=== PATIENT | female | born 1955 | race African-American/Black ===

== ENCOUNTER 2016-10-05 21:09 | Inpatient (IN) | payer BC ==
[~2016-10-05] VITALS: Ht 157.5 cm; Wt 65.8 kg
[~2016-10-05 21:09] MED LIST: BENA40TA41 PO; CITA20TA6 PO; FOLI-49 PO; HYDR-906 PO; IBUP200C PO; METF500T4 PO; MULTI PO; THIA100T10 PO; TRAZ100T15 PO
[2016-10-05 23:43] VITALS: Ht 157.5 cm; Wt 65.8 kg
[2016-10-06] VITALS (13 sets, daily range): BP systolic 105–126; BP diastolic 66–84; PULSE 95–108; RESP 16–19
--- NOTE | 2016-10-06 00:06 | HP ---
Date/Time of Note Date/Time of Note DATE: 10/06/16 TIME: 00:06 Assessment/Plan VTE Prophylaxis VTE Prophylaxis Intervention: SCD's Assessment/Plan Chief Complaint/Hosp Course This is a 61-year-old female [facility] for: #1 abdominal ascites: Secondary to likely alcoholic liver cirrhosis: At the current time we will start the patient on Lasix 40 mg IV twice daily. Will order therapeutic ultrasound-guided paracentesis via IR #2 cirrhosis: Likely secondary to alcoholic liver cirrhosis. Will check ammonia level, patient does does not appear to be encephalopathic at this time. Check hepatitis panel. Patient will likely need to be on started on maintenance medication for her cirrhosis upon discharge. Consider GI consult. #3 hypertension: Continue to monitor at the current time patient is not on any medications if she indeed needs blood pressure medications will likely start with spironolactone as it will also help with #2. #4 anemia: Likely secondary to chronic disease. Will check iron studies. #5 diabetes mellitus: We will check a hemoglobin A1c. She does not take any current oral hypoglycemic agents. #6 DVT and GI prophylaxis: SCDs, Protonix Further treatment strategy will be as per the clinical course Problems: HPI/ROS Admit Date/Time Admit Date/Time Oct 05, 2016 at 23:21 Hx of Present Illness Chief complaint: Abdominal pain and distention This is a 61-year-old female who was transferred from an outside facility for increasing abdominal distention. Patient has a history of cirrhosis and has been getting therapeutic paracentesis. She states that she is homeless and lives with various friends. She currently is not on any medications. She denies any recent confusion. She states that her most recent alcoholic drink was a wine which was yesterday. She does state that she also uses marijuana. Denies any shortness of breath or chest pain. Allergies: Aspirin Medications: None ROS Const: As per HPI Eyes : No pain discharge or redness or change in visual acuity ENT: No pain, sore throat, congestion, congestion, dysphagia or discharge Respiratory: No shortness of breath, cough, sputum, wheezing, or pleuritic pain Cardiovascular: No chest pain, palpitation, PND, or edema GI : As per HPI Genitourinary: No dysuria, hematuria, flank pain , discharge or CVA tenderness Musculoskeletal: No joint pain, back pain, neck pain, restricted range of motion in neck or joints Skin: No rash, bruising or hives Neuro: No headache, dizziness, syncope, seizure, focal weakness Endocrine: No polyuria, polydipsia, temperature intolerance Psych: No hallucination, depression, anxiety or suicidal ideation PMH/Family/Social Past Medical History alcohol abuse, [id number] diabetes, and hypertension, cirrhosis, hep C Past Surgical History Partial hysterectomy Family History Significant Family History: no pertinent family hx Social History Patient states that she used to be a heavy alcohol drinker and her last drink was wine yesterday. Smoking Status: Never smoker Drug Use: marijuana Exam/Review of Systems Exam Exam General: Patient is a pleasant female laying in bed in no acute distress. HEENT: Atraumatic, normocephalic. The pupils are equal, round and reactive. Extraocular motor are intact Neck: Supple with full range of motion. No rigidity or meningismus Chest: Nontender Lungs: Clear to auscultation bilaterally no crackles rales or wheezing Heart: Normal S1-S2, Regular rhythm and rate. No murmur, S3, or S4 Abdomen: Distended, tympanic Extremities: Normal to inspection, no edema no cyanosis Neurologic: Normal mental status, speech normal, cranial nerves II through XII are intact, motor and sensory are intact, no focal weakness Additional Comments Transfer facility lab work did show abnormal coagulation studies, UA with positive leukoesterase and nitrates. Please refer to transfer paperwork for further lab work documentation. CARLA ELIKNS Oct 06, 2016 00:06
[2016-10-06] MEDS ORDERED: NACL 0.9% 3 ML SYG IV SCH (00:30)
[2016-10-06] MEDS ORDERED: morphine 2 MG INJ IV ONE (01:00)
[2016-10-06 01:25] LABS: ADD SCAN DIFF NO
[2016-10-06 01:31] LABS: ABNORMAL IP MESSAGE 1; HEMATOCRIT 29.8 % (37.0-47.0); HEMOGLOBIN 10.4 g/dl (12.0-16.0); MEAN CORPUSCULAR HEMOGLOBIN 34.1 pg (29.0-33.0); MEAN CORPUSCULAR HGB CONC 34.9 g/dl (32.0-37.0); MEAN CORPUSCULAR VOLUME 97.7 fl (82.0-101.0); MEAN PLATELET VOLUME 9.9 fl (7.4-10.4); PLATELET COUNT 31 10^3/UL (140-415); RED BLOOD COUNT 3.05 10^6/ul (4.20-5.40); RED CELL DISTRIBUTION WIDTH 16.6 % (11.5-14.5); WHITE BLOOD COUNT 3.4 10^3/ul (4.8-10.8)
[2016-10-06 01:52] LABS: ALBUMIN 2.6 g/dl (3.3-4.9); ALBUMIN/GLOBULIN RATIO 0.48; BILIRUBIN,DIRECT 0.6 mg/dl (0.00-0.20); BILIRUBIN,INDIRECT 1.1 mg/dl (0-1.1); BILIRUBIN,TOTAL 1.7 mg/dl (0.2-1.3); CALCIUM 8.3 mg/dl (8.4-10.2); CREATININE 0.73 mg/dl (0.44-1.00); POTASSIUM 3.1 mmol/L (3.5-5.1)
[2016-10-06 02:00] LABS: LYMPHOCYTES # 1.2 10^3/ul (0.8-2.9); MONOCYTE # 0.3 10^3/ul (0.3-0.9); NEUTROPHIL # 1.9 10^3/ul (1.6-7.5)
[2016-10-06 02:01] LABS: PLATELET ESTIMATE PLT APPEAR
[2016-10-06] MEDS ORDERED: POTASSIUM CHLORIDE (SR) 20 MEQ TAB PO STA ×2 (02:50→10:12)
[2016-10-06] MEDS: PANTOPRAZOLE 40 MG INJ IV SCH (05:21)
[2016-10-06] MEDS: FUROSEMIDE 40 MG INJ IV SCH ×2 (05:21→18:08)
[2016-10-06 08:15] LABS: CALCIUM 8.2 mg/dl (8.4-10.2); CREATININE 0.73 mg/dl (0.44-1.00); IRON 57 ug/dl (35-150); PROTIME 22.9 Sec (12.2-14.2); PT RATIO 1.8
[2016-10-06 08:16] LABS: PARTIAL THROMBOPLASTIN TIME 41.6 Sec (25.0-35.0)
[2016-10-06 08:23] LABS: POTASSIUM 2.7 mmol/L (3.5-5.1)
[2016-10-06 08:24] LABS: TOTAL IRON BINDING CAPACITY 176 ug/dl (241-421)
[2016-10-06] MEDS: POTASSIUM CHLORIDE (SR) 20 MEQ TAB PO SCH (09:36)
[2016-10-06] MEDS: MULTIVITAMINS 10 ML, THIAMINE 100 MG, FOLIC ACID 1 MG in SOD CHLORIDE 0.9% 1,000 ML IVPB SCH (09:36)
[2016-10-06] MEDS: morphine 2 MG INJ IV PRN (09:46)
[2016-10-06] MEDS: ONDANSETRON 4 MG INJ IV PRN (09:46)
[2016-10-06] MEDS ORDERED: POTASSIUM CHLORIDE 250 ML IVPB ONE (11:30)
[2016-10-06 13:49] LABS: ADD UMIC YES; UR ASCORBIC ACID NEGATIVE (NEGATIVE); UR BACTERIA FEW /HPF (NONE SEEN); UR BILIRUBIN (Dip) 1+ mg/dL (NEGATIVE); UR BLOOD (Dip) 3+ mg/dL (NEGATIVE); UR CLARITY TURBID (CLEAR); UR COLOR RED (YELLOW); UR GLUCOSE (Dip) NEGATIVE (NEGATIVE); UR KETONES (Dip) NEGATIVE (NEGATIVE); UR LEUKOCYTE ESTERASE (Dip) 2+ Leu/ul (NEGATIVE); UR MUCUS MANY /HPF (NONE SEEN); UR NITRITE (Dip) NEGATIVE (NEGATIVE); UR RBC 127 /HPF (0-5); UR SPECIFIC GRAVITY (Dip) 1.025 (1.003-1.030); UR SQUAMOUS EPITHELIAL CELL FEW /HPF (FEW); UR TOTAL PROTEIN (Dip) 2+ mg/dl (NEGATIVE); UR UROBILINOGEN (Dip) 2+ mg/dL (NEGATIVE)
[2016-10-06 14:20] LABS: BARBITURATES Negative (NEGATIVE); BENZODIAZEPINES Negative (NEGATIVE); CANNABINOIDS Positive (NEGATIVE); COCAINE Negative (NEGATIVE); OPIATES Positive (NEGATIVE)
[2016-10-06] MEDS ORDERED: SOD CHLORIDE 0.9% 250 ML IV* ONE (15:51)
[2016-10-06] MEDS ORDERED: FUROSEMIDE 40 MG INJ IV SCH (16:00)
[2016-10-06] MEDS: CEFTRIAXONE 1 GM/50 ML (PMX) 50 ML IVPB SCH (16:43)
[2016-10-06 16:53] LABS: BARBITURATES Negative (NEGATIVE); BENZODIAZEPINES Negative (NEGATIVE); CANNABINOIDS Positive (NEGATIVE); COCAINE Negative (NEGATIVE); OPIATES Positive (NEGATIVE)
[2016-10-06] MEDS ORDERED: PHYTONADIONE 10 MG in DEXTROSE 5% 50 ML IVPB ONE (18:00)
[2016-10-07] VITALS (10 sets, daily range): BP systolic 101–122; BP diastolic 58–79; PULSE 104–128; RESP 16–20
[2016-10-07] MEDS: POTASSIUM CHLORIDE (SR) 20 MEQ TAB PO SCH (00:27)
[2016-10-07] MEDS: LORAZEPAM 2 MG INJ IV PRN (00:46)
[2016-10-07] MEDS: PANTOPRAZOLE 40 MG INJ IV SCH (05:42)
[2016-10-07] MEDS: FUROSEMIDE 40 MG INJ IV SCH ×3 (05:43→17:44)
[2016-10-07 07:10] LABS: ADD SCAN DIFF NO
[2016-10-07 07:15] LABS: ABNORMAL IP MESSAGE 1; BASOPHILS % 0.3 % (0.0-2.0); EOSINOPHILS % 0.6 % (0.0-7.0); HEMATOCRIT 28.7 % (37.0-47.0); HEMOGLOBIN 9.7 g/dl (12.0-16.0); LYMPHOCYTES # 1.4 10^3/ul (0.8-2.9); LYMPHOCYTES % 40.1 % (15.0-51.0); MEAN CORPUSCULAR HEMOGLOBIN 33.1 pg (29.0-33.0); MEAN CORPUSCULAR HGB CONC 33.8 g/dl (32.0-37.0); MEAN PLATELET VOLUME 11.5 fl (7.4-10.4); MONOCYTE # 0.6 10^3/ul (0.3-0.9); MONOCYTES % 18.7 % (0.0-11.0); NEUTROPHIL # 1.4 10^3/ul (1.6-7.5); PLATELET COUNT 31 10^3/UL (140-415); RED BLOOD COUNT 2.93 10^6/ul (4.20-5.40); RED CELL DISTRIBUTION WIDTH 16.8 % (11.5-14.5); WHITE BLOOD COUNT 3.4 10^3/ul (4.8-10.8)
[2016-10-07 07:32] LABS: INR 2.16; MAGNESIUM 1.5 mg/dl (1.7-2.5); PHOSPHORUS 2.5 mg/dl (2.5-4.9); PROTIME 24.3 Sec (12.2-14.2); PT RATIO 1.9
[2016-10-07 07:33] LABS: CHOL/HDL RATIO 5.9 RATIO; PARTIAL THROMBOPLASTIN TIME 42.8 Sec (25.0-35.0)
[2016-10-07 07:34] LABS: ALBUMIN 2.5 g/dl (3.3-4.9); ALBUMIN/GLOBULIN RATIO 0.51; BILIRUBIN,DIRECT 0.8 mg/dl (0.00-0.20); BILIRUBIN,INDIRECT 1.6 mg/dl (0-1.1); BILIRUBIN,TOTAL 2.4 mg/dl (0.2-1.3); CALCIUM 7.8 mg/dl (8.4-10.2); CREATININE 1.01 mg/dl (0.44-1.00); POTASSIUM 4.3 mmol/L (3.5-5.1); TOTAL PROTEIN 7.4 g/dl (6.1-8.1)
[2016-10-07 08:03] LABS: THYROID STIMULATING HORMONE 2.32 MIU/L (0.465-4.680)
[2016-10-07] MEDS: MULTIVITAMINS 10 ML, THIAMINE 100 MG, FOLIC ACID 1 MG in SOD CHLORIDE 0.9% 1,000 ML IVPB SCH (08:51)
[2016-10-07] MEDS ORDERED: PHYTONADIONE 10 MG in DEXTROSE 5% 50 ML IVPB ONE (12:30)
[2016-10-07] MEDS: morphine 2 MG INJ IV PRN ×2 (12:36→22:39)
[2016-10-07] MEDS ORDERED: IBUPROFEN 400 MG TAB PO ONE (15:30)
[2016-10-07 15:31] LABS: ADD SCAN DIFF NO
[2016-10-07 15:53] LABS: ABNORMAL IP MESSAGE 1; HEMATOCRIT 29.6 % (37.0-47.0); HEMOGLOBIN 10.2 g/dl (12.0-16.0); MEAN CORPUSCULAR HEMOGLOBIN 34.1 pg (29.0-33.0); MEAN CORPUSCULAR HGB CONC 34.5 g/dl (32.0-37.0); MEAN PLATELET VOLUME 11.1 fl (7.4-10.4); RED BLOOD COUNT 2.99 10^6/ul (4.20-5.40); RED CELL DISTRIBUTION WIDTH 16.7 % (11.5-14.5); WHITE BLOOD COUNT 3.7 10^3/ul (4.8-10.8)
[2016-10-07 15:56] LABS: PLATELET COUNT 54 10^3/UL (140-415)
[2016-10-07] MEDS ORDERED: MAGNESIUM SULFATE 2 GM/50 ML 50 ML IVPB ONE (16:00)
[2016-10-07] MEDS ORDERED: FUROSEMIDE 20 MG INJ IV ONE (16:30)
--- NOTE | 2016-10-07 16:35 | PN ---
Date/Time of Note Date/Time of Note DATE: 10/07/16 TIME: 16:31 Assessment/Plan VTE Prophylaxis VTE Prophylaxis Intervention: contraindicated Lines/Catheters [facility]from [facility] Peripheral IV Urinary Cath still in place: Yes Reason Cath still needed: other (indicate) Assessment/Plan Chief Complaint/Hosp Course 1. Alcoholic liver cirrhosis. Continue Lasix. 2. Ascites secondary to alcoholic liver cirrhosis. Continue diuresis. The patient is scheduled for a paracentesis. 3. Coagulopathy secondary to underlying alcoholic liver disease. Status post 2 units of platelet. Status post vitamin K. Repeat PT/INR as well as platelet count. 4. Pancytopenia. Most probably secondary to underlying liver cirrhosis. Transfuse blood products. 5. Transaminitis with hyperbilirubinemia. Avoid hepatotoxic medications. Trend LFTs. 6. Fluids, electrolytes, and nutrition. Low-sodium diet. 7. DVT prophylaxis. Contraindicated. 8. Gastrointestinal prophylaxis. Proton pump inhibitors. 9. Plan. Continue diuresis. Await paracentesis. Replete magnesium. Case discussed with Dr. Alvarado. Problems: Subjective 24 Hr Interval Summary Free Text/Dictation Complains of dyspnea. Exam/Review of Systems Vital Signs Vitals Vital Signs Date Time Temp Pulse Resp B/P Pulse Ox O2 Delivery O2 Flow Rate FiO2 10/07/16 16:26 128 10/07/16 15:22 99.0 18 122/66 97 Intake and Output 10/06/16 10/06/16 10/07/16 15:00 23:00 07:00 Intake Total 1700 ml 300 ml Output Total 900 ml 1100 ml Balance 800 ml -800 ml Exam General: Thin, frail looking 61 year-old female lying in bed in mild respiratory distress. HEENT: Normocephalic, atraumatic. Eyes: Anicteric sclerae, conjunctivae clear. ENT: Nasal septum midline, oral mucosa moist. Neck supple, no JVD noticed. Respiratory: Bilaterally diminished breath sounds. Use of accessory muscles of respiration. Bilateral rales. Cardiovascular: S1, S2 heard. No murmurs or gallops. Tachycardia. Abdomen: Distended. Ascites. Nontender. Genitourinary: Deferred. Extremities: No cyanosis, no clubbing, no edema. Peripheral pulses palpable. Neurologic: Cranial nerves II through XII grossly intact. The patient is awake, alert, and oriented. Skin: Normal skin turgor. No skin rashes. Results Result Diagram: 10/07/16 1519 10/07/16 0640 Results 24 hrs Laboratory Tests Test 10/07/16 06:40 10/07/16 15:19 White Blood Count 3.4 L 3.7 L Red Blood Count 2.93 L 2.99 L Hemoglobin 9.7 L 10.2 L Hematocrit 28.7 L 29.6 L Mean Corpuscular Volume 98.0 99.0 Mean Corpuscular Hemoglobin 33.1 H 34.1 H Mean Corpuscular Hemoglobin Concent 33.8 34.5 Red Cell Distribution Width 16.8 H 16.7 H Platelet Count 31 L 54 #L Mean Platelet Volume 11.5 H 11.1 H Neutrophils % 40.0 Lymphocytes % 40.1 Monocytes % 18.7 H Eosinophils % 0.6 Basophils % 0.3 Nucleated Red Blood Cells % 0.0 Neutrophils # 1.4 L Lymphocytes # 1.4 Monocytes # 0.6 Eosinophils # 0.0 Basophils # 0.0 Nucleated Red Blood Cells # 0.0 Prothrombin Time 24.3 H Prothrombin Time Ratio 1.9 INR International Normalized Ratio 2.16 Activated Partial Thromboplast Time 42.8 H Sodium Level 134 L Potassium Level 4.3 Chloride Level 107 Carbon Dioxide Level 25 Anion Gap 6 L Blood Urea Nitrogen 8 Creatinine 1.01 H Glucose Level 83 # Calcium Level 7.8 L Phosphorus Level 2.5 Magnesium Level 1.5 L Total Bilirubin 2.4 H Direct Bilirubin 0.80 #H Indirect Bilirubin 1.6 H Aspartate Amino Transf (AST/SGOT) 160 H Alanine Aminotransferase (ALT/SGPT) 57 Alkaline Phosphatase 120 Total Protein 7.4 Albumin 2.5 L Globulin 4.90 H Albumin/Globulin Ratio 0.51 Triglycerides Level 55 Cholesterol Level 65 L LDL Cholesterol, Calculated 43 HDL Cholesterol 11 L Cholesterol/HDL Ratio 5.9 Thyroid Stimulating Hormone (TSH) 2.320 Free Thyroxine 2.91 H Medications Medications Current Medications Ondansetron HCl (Zofran Inj) 4 mg Q6H PRN IV NAUSEA AND/OR VOMITING Last administered on 10/06/16 09:46; Admin Dose 4 MG; Start 10/06/16 at 00:30 Pantoprazole 40 mg 40 mg DAILY@06 IV Last administered on 10/07/16 05:42; Admin Dose 40 MG; Start 10/06/16 at 06:00 Ceftriaxone Sodium (Rocephin) 50 ml @ 100 mls/hr Q24H IVPB Last administered on 10/06/16 16:43; Admin Dose 100 MLS/HR; Start 10/06/16 at 17:00 Lorazepam (Ativan) 1 mg Q6H PRN IV AGITATION/ANXIETY Last administered on 00:46; Admin Dose 1 MG; Start 10/06/16 at 03:00 Morphine Sulfate 2 mg 2 mg Q4H PRN IV PAIN LEVEL 6-10 Last administered on 10/07 12:36; Admin Dose 2 MG; Start 10/06/16 at 05:30 Multivitamins 10 ml/Thiamine HCl 100 mg/Folic Acid 1 mg/Sodium Chloride 1,011.2 ml @ 125 mls/ hr DAILY@09 IVPB Last administered on 10/07/16 08:51; Admin Dose 125 MLS/HR; Start 10/06/16 at 09:00 Magnesium Sulfate (Magnesium Sulfate 2 Gm/50 ml) 50 ml @ 25 mls/hr ONCE ONCE IVPB ; Start 10/07/16 at 16:00; Stop 10/07/16 at 17:59 LATANYA SHEEHAN NP Oct 07, 2016 16:34
[2016-10-07] MEDS: CEFTRIAXONE 1 GM/50 ML (PMX) 50 ML IVPB SCH (16:43)
[2016-10-07 16:45] LABS: LYMPHOCYTES # 0.8 10^3/ul (0.8-2.9); MONOCYTE # 0.3 10^3/ul (0.3-0.9); NEUTROPHIL # 2.5 10^3/ul (1.6-7.5)
[2016-10-07 16:47] LABS: PLATELET ESTIMATE PLT APPEAR DECREASED
[2016-10-07 17:00] LABS: INR 1.81; PROTIME 21.1 Sec (12.2-14.2); PT RATIO 1.6
[2016-10-07 17:01] LABS: PARTIAL THROMBOPLASTIN TIME 40.5 Sec (25.0-35.0)
[2016-10-08] VITALS (12 sets, daily range): BP systolic 108–131; BP diastolic 59–88; PULSE 93–119; RESP 16–20
[2016-10-08] MEDS: FUROSEMIDE 40 MG INJ IV SCH ×2 (05:48→18:18)
[2016-10-08] MEDS: PANTOPRAZOLE 40 MG INJ IV SCH (05:49)
[2016-10-08 07:34] LABS: ADD SCAN DIFF NO
[2016-10-08 07:43] LABS: ABNORMAL IP MESSAGE 1; HEMATOCRIT 27.4 % (37.0-47.0); HEMOGLOBIN 9.1 g/dl (12.0-16.0); MEAN CORPUSCULAR HEMOGLOBIN 33.7 pg (29.0-33.0); MEAN CORPUSCULAR HGB CONC 33.2 g/dl (32.0-37.0); MEAN CORPUSCULAR VOLUME 101.5 fl (82.0-101.0); RED CELL DISTRIBUTION WIDTH 16.9 % (11.5-14.5); WHITE BLOOD COUNT 4.6 10^3/ul (4.8-10.8)
[2016-10-08 07:48] LABS: PLATELET COUNT 28 10^3/UL (140-415)
[2016-10-08 07:56] LABS: INR 1.88; PROTIME 21.8 Sec (12.2-14.2); PT RATIO 1.7
[2016-10-08 07:57] LABS: PARTIAL THROMBOPLASTIN TIME 40.7 Sec (25.0-35.0)
[2016-10-08 07:59] LABS: ALBUMIN 2.6 g/dl (3.3-4.9); ALBUMIN/GLOBULIN RATIO 0.52; BILIRUBIN,DIRECT 0.9 mg/dl (0.00-0.20); BILIRUBIN,INDIRECT 1.4 mg/dl (0-1.1); BILIRUBIN,TOTAL 2.3 mg/dl (0.2-1.3); CALCIUM 8.1 mg/dl (8.4-10.2); CREATININE 1.26 mg/dl (0.44-1.00); POTASSIUM 3.3 mmol/L (3.5-5.1); TOTAL PROTEIN 7.6 g/dl (6.1-8.1)
[2016-10-08 08:03] LABS: MAGNESIUM 1.8 mg/dl (1.7-2.5)
[2016-10-08] MEDS: MULTIVITAMINS 10 ML, THIAMINE 100 MG, FOLIC ACID 1 MG in SOD CHLORIDE 0.9% 1,000 ML IVPB SCH (09:01)
[2016-10-08 10:11] LABS: LYMPHOCYTES # 0.9 10^3/ul (0.8-2.9); MONOCYTE # 0.6 10^3/ul (0.3-0.9); MYELOCYTES # 0.1; NEUTROPHIL # 2.9 10^3/ul (1.6-7.5); PLATELET ESTIMATE PLT APPEAR DECREASED
[2016-10-08] MEDS ORDERED: SOD CHLORIDE 0.9% 250 ML IV* ONE (10:57)
[2016-10-08] MEDS ORDERED: FUROSEMIDE 40 MG INJ IV SCH (11:00)
[2016-10-08] MEDS ORDERED: POTASSIUM CHLORIDE (SR) 20 MEQ TAB PO STA (14:20)
--- NOTE | 2016-10-08 14:22 | PN ---
Date/Time of Note Date/Time of Note DATE: 10/08/16 TIME: 14:15 Assessment/Plan VTE Prophylaxis VTE Prophylaxis Intervention: contraindicated Lines/Catheters [facility]from [facility]): Peripheral IV Urinary Cath still in place: Yes Reason Cath still needed: other (indicate) Assessment/Plan Chief Complaint/Hosp Course 1. Alcoholic liver cirrhosis. Continue Lasix. Will start the patient on lactulose since the patient has hyperammonemia. 2. Ascites secondary to alcoholic liver cirrhosis. Continue diuresis. The patient is scheduled for a paracentesis. 3. Coagulopathy secondary to underlying alcoholic liver disease. Status post multiple platelet transfusions. 4. Pancytopenia. Most probably secondary to underlying liver cirrhosis. Transfuse blood products. 5. Transaminitis with hyperbilirubinemia. Avoid hepatotoxic medications. Trend LFTs. 6. Fluids, electrolytes, and nutrition. Low-sodium diet. 7. DVT prophylaxis. Contraindicated. 8. Gastrointestinal prophylaxis. Proton pump inhibitors. 9. Plan. Continue diuresis. Transfuse 2 more units of platelets today. Await paracentesis. Replete potassium. Start lactulose. Case discussed with Dr. Alvarado. Problems: Subjective 24 Hr Interval Summary Free Text/Dictation Denies any dyspnea. Exam/Review of Systems Vital Signs Vitals Vital Signs Date Time Temp Pulse Resp B/P Pulse Ox O2 Delivery O2 Flow Rate FiO2 10/08/16 12:21 108 10/08/16 11:19 98.4 18 121/66 96 Intake and Output 10/07/16 10/07/16 10/08/16 15:00 23:00 07:00 Intake Total 660 ml 1461.2 ml Output Total 1300 ml 700 ml Balance -640 ml 761.2 ml Exam General: Thin, frail looking 61 year-old female lying in bed in no apparent distress. HEENT: Normocephalic, atraumatic. Eyes: Anicteric sclerae, conjunctivae clear. ENT: Nasal septum midline, oral mucosa moist. Neck supple, no JVD noticed. Respiratory: Bilaterally diminished breath sounds. Use of accessory muscles of respiration. Cardiovascular: S1, S2 heard. No murmurs or gallops. Tachycardia. Abdomen: Distended. Ascites. Nontender. Genitourinary: Deferred. Extremities: No cyanosis, no clubbing, no edema. Peripheral pulses palpable. Neurologic: Cranial nerves II through XII grossly intact. The patient is awake, alert, and oriented. Skin: Normal skin turgor. No skin rashes. Results Result Diagram: 10/08/16 0656 10/08/16 0656 Results 24 hrs Laboratory Tests Test 10/07/16 15:19 10/08/16 05:33 10/08/16 06:56 10/08/16 06:59 White Blood Count 3.7 L 4.6 #L Red Blood Count 2.99 L 2.70 L Hemoglobin 10.2 L 9.1 L Hematocrit 29.6 L 27.4 L Mean Corpuscular Volume 99.0 101.5 H Mean Corpuscular Hemoglobin 34.1 H 33.7 H Mean Corpuscular Hemoglobin Concent 34.5 33.2 Red Cell Distribution Width 16.7 H 16.9 H Platelet Count 54 #L 28 #*L Mean Platelet Volume 11.1 H 11.0 H Neutrophils % 68.0 64.0 Band Neutrophils % 1.0 Lymphocytes % 22.0 19.0 Monocytes % 8.0 13.0 H Eosinophils % 1.0 Neutrophils # 2.5 2.9 Lymphocytes # 0.8 0.9 Monocytes # 0.3 0.6 Eosinophils # 0.0 Platelet Estimate PLT APPEAR DECREASED PLT APPEAR DECREASED Prothrombin Time 21.1 H 21.8 H Prothrombin Time Ratio 1.6 1.7 INR International Normalized Ratio 1.81 1.88 Activated Partial Thromboplast Time 40.5 H 40.7 H Lab Scanned Report BLOOD TRANSFUSION Metamyelocytes % 2.0 H Myelocytes % 2.0 H Metamyelocytes # 0.1 Myelocytes # 0.1 Sodium Level 135 Potassium Level 3.3 L Chloride Level 106 Carbon Dioxide Level 28 Anion Gap 4 L Blood Urea Nitrogen 10 Creatinine 1.26 H Glucose Level 116 Calcium Level 8.1 L Total Bilirubin 2.3 H Direct Bilirubin 0.90 H Indirect Bilirubin 1.4 H Aspartate Amino Transf (AST/SGOT) 125 H Alanine Aminotransferase (ALT/SGPT) 52 Alkaline Phosphatase 147 H Ammonia 60 #H Total Protein 7.6 Albumin 2.6 L Globulin 5.00 H Albumin/Globulin Ratio 0.52 Phosphorus Level 3.0 Magnesium Level 1.8 Medications Medications Current Medications Ondansetron HCl (Zofran Inj) 4 mg Q6H PRN IV NAUSEA AND/OR VOMITING Last administered on 10/06/16t 09:46; Admin Dose 4 MG; Start 10/06/16 at 00:30 Pantoprazole 40 mg 40 mg DAILY@06 IV Last administered on 10/08/16 05:49; Admin Dose 40 MG; Start 10/06/16 at 06:00 Ceftriaxone Sodium (Rocephin) 50 ml @ 100 mls/hr Q24H IVPB Last administered on 10/07/16 16:43; Admin Dose 100 MLS/HR; Start 10/06/16 at 17:00 Lorazepam (Ativan) 1 mg Q6H PRN IV AGITATION/ANXIETY Last administered on 00:46; Admin Dose 1 MG; Start 10/06/16 at 03:00 Morphine Sulfate 2 mg 2 mg Q4H PRN IV PAIN LEVEL 6-10 Last administered on 10/07 22:39; Admin Dose 2 MG; Start 10/06/16 at 05:30 Multivitamins/ Thiamine HCl/ Folic Acid/Sodium Chloride (Mvi Adult/ Vitamin B1/ Folic Acid/NS) 1,011.2 ml @ 125 mls/ hr DAILY@09 IVPB Last administered on 09:01; Admin Dose 125 MLS/HR; Start 10/06/16 at 09:00 Furosemide (Lasix) 20 mg ONCE IV ; Start 10/08/16 at 11:00; Stop 10/09/16 at 10: 59 LATANYA SHEEHAN BRASS ROLLER Oct 08, 2016 14:22
[2016-10-08] MEDS: LACTULOSE 30ML CUP PO SCH ×2 (14:55→21:00)
[2016-10-08] MEDS: morphine 2 MG INJ IV PRN ×2 (17:02→23:58)
[2016-10-08] MEDS: CEFTRIAXONE 1 GM/50 ML (PMX) 50 ML IVPB SCH (17:35)
[2016-10-09] VITALS (12 sets, daily range): BP systolic 112–131; BP diastolic 79–92; PULSE 96–116; RESP 18–20
[2016-10-09] MEDS: PANTOPRAZOLE 40 MG INJ IV SCH (05:14)
[2016-10-09] MEDS: FUROSEMIDE 40 MG INJ IV SCH ×2 (05:15→17:06)
[2016-10-09] MEDS: LACTULOSE 30ML CUP PO SCH ×3 (05:16→21:19)
[2016-10-09 07:57] LABS: ADD SCAN DIFF NO
[2016-10-09 07:58] LABS: ABNORMAL IP MESSAGE 1; BASOPHILS % 0.5 % (0.0-2.0); EOSINOPHILS % 0.8 % (0.0-7.0); HEMATOCRIT 30.6 % (37.0-47.0); HEMOGLOBIN 9.8 g/dl (12.0-16.0); LYMPHOCYTES # 1.4 10^3/ul (0.8-2.9); MEAN CORPUSCULAR HEMOGLOBIN 32.9 pg (29.0-33.0); MEAN CORPUSCULAR VOLUME 102.7 fl (82.0-101.0); MEAN PLATELET VOLUME 11.7 fl (7.4-10.4); MONOCYTE # 0.9 10^3/ul (0.3-0.9); MONOCYTES % 21.8 % (0.0-11.0); NEUTROPHIL # 1.7 10^3/ul (1.6-7.5); NEUTROPHILS % 41.4 % (39.0-77.0); RED BLOOD COUNT 2.98 10^6/ul (4.20-5.40)
[2016-10-09 08:07] LABS: PLATELET COUNT 33 10^3/UL (140-415)
[2016-10-09 08:37] LABS: INR 1.77; PROTIME 20.8 Sec (12.2-14.2); PT RATIO 1.6
[2016-10-09 08:38] LABS: PARTIAL THROMBOPLASTIN TIME 40.8 Sec (25.0-35.0)
[2016-10-09 08:44] LABS: MAGNESIUM 1.5 mg/dl (1.7-2.5); PHOSPHORUS 3.3 mg/dl (2.5-4.9)
[2016-10-09 08:49] LABS: ALBUMIN/GLOBULIN RATIO 0.58; BILIRUBIN,INDIRECT 1.9 mg/dl (0-1.1); BILIRUBIN,TOTAL 3.9 mg/dl (0.2-1.3); CALCIUM 8.4 mg/dl (8.4-10.2); CREATININE 1.06 mg/dl (0.44-1.00); TOTAL PROTEIN 8.1 g/dl (6.1-8.1)
[2016-10-09] MEDS: MULTIVITAMINS 10 ML, THIAMINE 100 MG, FOLIC ACID 1 MG in SOD CHLORIDE 0.9% 1,000 ML IVPB SCH (08:55)
[2016-10-09] MEDS: morphine 2 MG INJ IV PRN (12:54)
--- NOTE | 2016-10-09 13:33 | PN ---
Date/Time of Note Date/Time of Note DATE: 10/09/16 TIME: 13:28 Assessment/Plan VTE Prophylaxis VTE Prophylaxis Intervention: SCD's Lines/Catheters IV [facility] Type (from [facility] Saline Lock [place] line still needed: Yes Urinary Cath still in place: Yes Reason Cath still needed: other (indicate) Assessment/Plan Assessment/Plan 1. Ascites secondary to alcoholic liver cirrhosis. Continue diuresis. awaiting for paracentesis 2. Alcoholic liver cirrhosis. advise no ETOH 3. Pancytopenia. secondary to underlying liver cirrhosis and ETOH, follow up with CBC. 5. Transaminitis with hyperbilirubinemia. Avoid hepatotoxic medications. Trend LFTs. Subjective 24 Hr Interval Summary Free Text/Dictation abdominal distension Exam/Review of Systems Vital Signs Vitals Vital Signs Date Time Temp Pulse Resp B/P Pulse Ox O2 Delivery O2 Flow Rate FiO2 10/09/16 12:11 116 10/09/16 11:48 98.0 18 130/88 97 10/08/16 15:30 Room Air Intake and Output 10/08/16 10/08/16 10/09/16 15:00 23:00 07:00 Intake Total 580 ml 550 ml Output Total 870 ml 1700 ml Balance -290 ml -1150 ml Exam Constitutional: alert, oriented Head: atraumatic, normocephalic Eyes: EOMI, PERRL, nl conjunctiva, nl lids, nl sclera ENMT: nl external ears & nose, nl lips & teeth, nl nasal mucosa & septum Neck: supple Respiratory: clear to auscultation, normal air movement, No congested cough, No crackles/rales, No diminished breath sounds, No intercostal retraction, No labored breathing, No other, No respirations, No tactile fremitus, No wheezing Cardiovascular: nl pulses, regular rate and rhythm, No S3, No S4, No bruits, No diastolic murmur, No edema, No gallop, No irregular rhythm, No jugular venous distention (JVD), No murmurs/extra sounds, No other, No rub, No systolic murmur Gastrointestinal: distended, tender (diffuse) Extremities: normal pulses, No calf tenderness, No clubbing, No cyanosis, No edema, No other, No palpable cord, No pitting pedal edema, No tenderness Neurological: [employer] II-XII intact, nl mental status, nl speech, nl strength Results Result Diagram: 10/09/16 0714 10/09/16 0715 Results 24 hrs Laboratory Tests Test 10/09/16 06:18 10/09/16 07:14 10/09/16 07:15 Lab Scanned Report BLOOD TRANSFUSION White Blood Count 4.0 L Red Blood Count 2.98 L Hemoglobin 9.8 L Hematocrit 30.6 L Mean Corpuscular Volume 102.7 H Mean Corpuscular Hemoglobin 32.9 Mean Corpuscular Hemoglobin Concent 32.0 Red Cell Distribution Width 17.0 H Platelet Count 33 L Mean Platelet Volume 11.7 H Neutrophils % 41.4 Lymphocytes % 35.0 Monocytes % 21.8 H Eosinophils % 0.8 Basophils % 0.5 Nucleated Red Blood Cells % 0.0 Neutrophils # 1.7 Lymphocytes # 1.4 Monocytes # 0.9 Eosinophils # 0.0 Basophils # 0.0 Nucleated Red Blood Cells # 0.0 Prothrombin Time 20.8 H Prothrombin Time Ratio 1.6 INR International Normalized Ratio 1.77 Activated Partial Thromboplast Time 40.8 H Phosphorus Level 3.3 Magnesium Level 1.5 L Sodium Level 139 Potassium Level 3.0 L Chloride Level 106 Carbon Dioxide Level 28 Anion Gap 8 Blood Urea Nitrogen 11 Creatinine 1.06 H Glucose Level 98 Calcium Level 8.4 Total Bilirubin 3.9 H Direct Bilirubin 2.00 #H Indirect Bilirubin 1.9 H Aspartate Amino Transf (AST/SGOT) 125 H Alanine Aminotransferase (ALT/SGPT) 47 Alkaline Phosphatase 144 H Total Protein 8.1 Albumin 3.0 L Globulin 5.10 H Albumin/Globulin Ratio 0.58 Medications Medications Current Medications Ondansetron HCl (Zofran Inj) 4 mg Q6H PRN IV NAUSEA AND/OR VOMITING Last administered on 10/06/16 09:46; Admin Dose 4 MG; Start 10/06/16 at 00:30 Pantoprazole (Protonix Iv) 40 mg DAILY@06 IV Last administered on 10/09/16 05: 14; Admin Dose 40 MG; Start 10/06/16 at 06:00 Lorazepam (Ativan) 1 mg Q6H PRN IV AGITATION/ANXIETY Last administered on 00:46; Admin Dose 1 MG; Start 10/06/16 at 03:00 Morphine Sulfate 2 mg 2 mg Q4H PRN IV PAIN LEVEL 6-10 Last administered on 10/09 12:54; Admin Dose 2 MG; Start 10/06/16 at 05:30 Multivitamins/ Thiamine HCl/ Folic Acid/Sodium Chloride (Mvi Adult/ Vitamin B1/ Folic Acid/NS) 1,011.2 ml @ 125 mls/ hr DAILY@09 IVPB Last administered on 08:55; Admin Dose 125 MLS/HR; Start 10/06/16 at 09:00 Lactulose 20 gm 20 gm Q8 PO Last administered on 10/09/16 05:16; Admin Dose 20 GM; Start 10/08/16 at 14:30 Ceftriaxone Sodium (Rocephin) 50 ml @ 100 mls/hr Q24H IVPB Last administered on 10/08/16 17:35; Admin Dose 100 MLS/HR; Start 10/08/16 at 17:02 KENNEY NASH MD Oct 09, 2016 13:32
[2016-10-09] MEDS ORDERED: POTASSIUM CHLORIDE (SR) 20 MEQ TAB PO STA (16:47)
[2016-10-09] MEDS: CEFTRIAXONE 1 GM/50 ML (PMX) 50 ML IVPB SCH (17:08)
[2016-10-09] MEDS ORDERED: MAGNESIUM SULFATE 4 GM/100 ML 100 ML IVPB ONE (18:00)
[2016-10-10] VITALS (12 sets, daily range): BP systolic 105–130; BP diastolic 70–86; PULSE 93–103; RESP 16–18
[2016-10-10] MEDS: FUROSEMIDE 40 MG INJ IV SCH ×2 (05:10→17:56)
[2016-10-10] MEDS: PANTOPRAZOLE 40 MG INJ IV SCH (05:10)
[2016-10-10] MEDS: LACTULOSE 30ML CUP PO SCH ×3 (05:10→21:30)
[2016-10-10 08:17] LABS: ADD SCAN DIFF NO
[2016-10-10 08:25] LABS: ABNORMAL IP MESSAGE 1; BASOPHILS % 0.5 % (0.0-2.0); EOSINOPHILS % 0.7 % (0.0-7.0); HEMATOCRIT 26.2 % (37.0-47.0); HEMOGLOBIN 8.8 g/dl (12.0-16.0); LYMPHOCYTES # 1.6 10^3/ul (0.8-2.9); LYMPHOCYTES % 36.3 % (15.0-51.0); MEAN CORPUSCULAR HGB CONC 33.6 g/dl (32.0-37.0); MEAN CORPUSCULAR VOLUME 101.2 fl (82.0-101.0); MEAN PLATELET VOLUME 11.3 fl (7.4-10.4); MONOCYTE # 0.9 10^3/ul (0.3-0.9); MONOCYTES % 21.4 % (0.0-11.0); NEUTROPHIL # 1.8 10^3/ul (1.6-7.5); NEUTROPHILS % 40.9 % (39.0-77.0); PLATELET COUNT 34 10^3/UL (140-415); RED BLOOD COUNT 2.59 10^6/ul (4.20-5.40); RED CELL DISTRIBUTION WIDTH 16.6 % (11.5-14.5); WHITE BLOOD COUNT 4.3 10^3/ul (4.8-10.8)
[2016-10-10] MEDS: MULTIVITAMINS 10 ML, THIAMINE 100 MG, FOLIC ACID 1 MG in SOD CHLORIDE 0.9% 1,000 ML IVPB SCH (08:53)
--- NOTE | 2016-10-10 09:19 | PN ---
Date/Time of Note Date/Time of Note DATE: 10/10/16 TIME: 09:13 Assessment/Plan VTE Prophylaxis VTE Prophylaxis Intervention: contraindicated Lines/Catheters IV [facility] Type (from [facility] Saline Lock Urinary Cath still in place: Yes Reason Cath still needed: urinary retention Assessment/Plan Problems: (1) Acute hypokalemia Status: Acute Comment: With the IV Lasix she is developed a modest hypokalemia. Correct and I will add in Spironolactone and since will be using spironolactone and furosemide as therapeutics for her cirrhosis with fluid retention. And ascites (2) Laennecs cirrhosis Status: Chronic Comment: Please note I do not actually have the formal diagnosis that this is alcoholic cirrhosis given the patient has a history of hepatitis C. Regardless the treatment will be the same. His most likely going to be alcoholic cirrhosis. Please note her cirrhosis advanced is advanced with pancytopenia. As such formal protective maneuvers should be undertaken for risks of portal hypertension induced bleeding (3) Alcoholism Status: Chronic Comment: She is getting past the point where we can expect withdrawal or DTs. She remains on support. She will be on thiamine folate multiple vitamins etc. (4) Major depressive disorder Status: Chronic Comment: Noted. Qualifiers: Major depression recurrence: recurrent Active/Remission status: currently active Major depression episode severity: moderate Qualified Code: F33.1 - Moderate episode of recurrent major depressive disorder (5) Hypomagnesemia Status: Resolved (6) Abnormal finding on urinalysis Status: Acute Comment: She was placed on IV antibiotic therapy for this although we do not actually have a urine culture. Will repeat the UA tomorrow to see if this is resolved (7) Essential hypertension Status: Chronic Comment: Stable. The spironolactone with Lasix will actually be therapeutic for this. In addition we could use nadolol which will also cover for the portal hypertension. (8) Anemia Status: Chronic Comment: Noted. Follow along likely anemia of chronic disease as this is not iron deficiency Qualifiers: Anemia type: unspecified type Qualified Code: D64.9 - Anemia, unspecified type (9) Hepatitis C antibody test positive Status: Chronic Comment: This is reported by the patient. We have not independently confirmed as it will not change therapeutics at this moment. (10) Homelessness Status: Chronic Comment: transportation services representative to assist Subjective 24 Hr Interval Summary Free Text/Dictation Complains of some stress and distention of the abdomen. Otherwise no complaints Constitutional: no complaints (Denies fevers chills or sweats) Respiratory: no complaints (Denies cough or shortness of breath) Cardiovascular: no complaints (Denies chest pain palpitations orthopnea or PND) Gastrointestinal: no complaints (Denies nausea vomiting diarrhea but does have abdominal distention complaints) Genitourinary: no complaints Exam/Review of Systems Vital Signs Vitals Vital Signs Date Time Temp Pulse Resp B/P Pulse Ox O2 Delivery O2 Flow Rate FiO2 10/10/16 08:17 103 10/10/16 08:06 98.0 18 108/77 98 10/08/16 15:30 Room Air Intake and Output 10/09/16 10/09/16 10/10/16 15:00 23:00 07:00 Intake Total 401.0112 ml 500 ml Output Total 700 ml 1100 ml Balance -298.9888 ml -600 ml Exam Pleasant -Cymro female lying in bed who is quite cooperative. Please note that she has makeup on and her toenails are painted Constitutional: alert, oriented Head: atraumatic, normocephalic Respiratory: clear to auscultation, normal air movement Cardiovascular: nl pulses, regular rate and rhythm Gastrointestinal: distended (Positive fluid wave no palpable spleen tip), soft Musculoskeletal: nl extremities to inspection Extremities: normal pulses Neurological: other (No asterixis) Results Result Diagram: 10/10/16 0745 10/09/16 0715 Results 24 hrs Laboratory Tests Test 10/10/16 07:45 White Blood Count 4.3 L Red Blood Count 2.59 L Hemoglobin 8.8 L Hematocrit 26.2 L Mean Corpuscular Volume 101.2 H Mean Corpuscular Hemoglobin 34.0 H Mean Corpuscular Hemoglobin Concent 33.6 Red Cell Distribution Width 16.6 H Platelet Count 34 L Mean Platelet Volume 11.3 H Neutrophils % 40.9 Lymphocytes % 36.3 Monocytes % 21.4 H Eosinophils % 0.7 Basophils % 0.5 Nucleated Red Blood Cells % 0.0 Neutrophils # 1.8 Lymphocytes # 1.6 Monocytes # 0.9 Eosinophils # 0.0 Basophils # 0.0 Nucleated Red Blood Cells # 0.0 Magnesium Level 1.9 Medications Medications Current Medications Ondansetron HCl (Zofran Inj) 4 mg Q6H PRN IV NAUSEA AND/OR VOMITING Last administered on 10/06/16 09:46; Admin Dose 4 MG; Start 10/06/16 at 00:30 Pantoprazole (Protonix Iv) 40 mg DAILY@06 IV Last administered on 10/10/16 05: 10; Admin Dose 40 MG; Start 10/06/16 at 06:00 Lorazepam (Ativan) 1 mg Q6H PRN IV AGITATION/ANXIETY Last administered on 00:46; Admin Dose 1 MG; Start 10/06/16 at 03:00 Morphine Sulfate 2 mg 2 mg Q4H PRN IV PAIN LEVEL 6-10 Last administered on 10/09 12:54; Admin Dose 2 MG; Start 10/06/16 at 05:30 Multivitamins/ Thiamine HCl/ Folic Acid/Sodium Chloride (Mvi Adult/ Vitamin B1/ Folic Acid/NS) 1,011.2 ml @ 125 mls/ hr DAILY@09 IVPB Last administered on 08:53; Admin Dose 125 MLS/HR; Start 10/06/16 at 09:00 Lactulose 20 gm 20 gm Q8 PO Last administered on 10/09/16 14:20; Admin Dose 20 GM; Start 10/08/16 at 14:30 Ceftriaxone Sodium (Rocephin) 50 ml @ 100 mls/hr Q24H IVPB Last administered on 10/09/16 17:08; Admin Dose 100 MLS/HR; Start 10/08/16 at 17:02 Potassium Chloride (Klor-Con 20) 40 meq BID PO ; Start 10/10/16 at 09:30; Stop 10/11/16 at 09:29; Status UNV Spironolactone (Aldactone) 50 mg DAILY PO ; Start 10/10/16 at 09:30; Status UNV TROY HERNANDEZ MD Oct 10, 2016 09:18
[2016-10-10 09:46] LABS: ALBUMIN 2.5 g/dl (3.3-4.9); ALBUMIN/GLOBULIN RATIO 0.51; BILIRUBIN,INDIRECT 1.3 mg/dl (0-1.1); BILIRUBIN,TOTAL 2.3 mg/dl (0.2-1.3); CALCIUM 8.1 mg/dl (8.4-10.2); CREATININE 0.87 mg/dl (0.44-1.00); TOTAL PROTEIN 7.4 g/dl (6.1-8.1)
[2016-10-10 09:48] LABS: POTASSIUM 2.9 mmol/L (3.5-5.1)
[2016-10-10] MEDS ORDERED: CYANOCOBALAMIN 1000 MCG INJ IM ONE (10:00)
[2016-10-10] MEDS ORDERED: PHYTONADIONE 10 MG/ML INJ IM ONE (10:00)
[2016-10-10] MEDS: SPIRONOLACTONE 50 MG TAB PO SCH (11:27)
[2016-10-10] MEDS: POTASSIUM CHLORIDE (SR) 20 MEQ TAB PO SCH ×2 (11:27→21:31)
[2016-10-10] MEDS: morphine 2 MG INJ IV PRN (16:44)
[2016-10-10] MEDS: CEFTRIAXONE 1 GM/50 ML (PMX) 50 ML IVPB SCH (16:53)
[2016-10-10] MEDS: LORAZEPAM 2 MG INJ IV PRN (21:36)
[2016-10-11] VITALS (12 sets, daily range): BP systolic 110–122; BP diastolic 69–87; PULSE 99–108; RESP 16–19
[2016-10-11] MEDS: FUROSEMIDE 40 MG INJ IV SCH ×2 (05:41→17:54)
[2016-10-11] MEDS: LACTULOSE 30ML CUP PO SCH ×3 (05:41→21:56)
[2016-10-11] MEDS: PANTOPRAZOLE 40 MG INJ IV SCH (05:41)
[2016-10-11 08:17] LABS: ADD SCAN DIFF NO
--- NOTE | 2016-10-11 08:34 | PN ---
Date/Time of Note Date/Time of Note DATE: 10/11/16 TIME: 08:30 Assessment/Plan VTE Prophylaxis VTE Prophylaxis Intervention: contraindicated Lines/Catheters IV Catheter Type (from [facility]): Saline Lock Urinary Cath still in place: No Assessment/Plan Problems: (1) Acute hypokalemia Status: Acute Comment: This morning's labs are still pending as of the time of this progress note. We will treat as appropriate (2) [place] cirrhosis Status: Chronic Comment: She is on diuretic therapy to help compensate for the portal hypertension all neck cirrhosis. She has not been able to have a therapeutic paracentesis due to her platelet counts which I believe a more reflection of bone marrow toxicity from her alcohol than as to overt end-stage cirrhosis (3) Alcoholism Status: Chronic Comment: No evidence of DTs or withdrawal; stable (4) Hypomagnesemia Status: Resolved Comment: Corrected (5) Abnormal finding on urinalysis Status: Acute Comment: She is on antibiotic therapy for this. (6) Essential hypertension Status: Chronic Comment: Adequately controlled. (7) Anemia Status: Chronic Comment: Holding stable at this time. Please note this is not an iron deficiency anemia Qualifiers: Anemia type: unspecified type Qualified Code: D64.9 - Anemia, unspecified type (8) Homelessness Status: Chronic Comment: consulting services associate to do their best to try and assist with this rather difficult situation Subjective 24 Hr Interval Summary Free Text/Dictation Patient reports as a result of the change in diuretics she has been urinating quite a bit more. She reports her stomach feels better. Constitutional: no complaints Respiratory: no complaints Cardiovascular: no complaints Gastrointestinal: no complaints (Specifically denies any nausea or diarrhea denies melena denies bright red blood per rectum) Genitourinary: no complaints Exam/Review of Systems Vital Signs Vitals Vital Signs Date Time Temp Pulse Resp B/P Pulse Ox O2 Delivery O2 Flow Rate FiO2 10/11/16 08:21 98.7 109 16 110/77 91 10/08/16 15:30 Room Air Intake and Output 10/10/16 10/10/16 10/11/16 15:00 23:00 07:00 Intake Total 450 ml Output Total 350 ml Balance 100 ml Exam Patient eating breakfast Constitutional: alert, oriented Neck: non-tender, supple Respiratory: clear to auscultation, normal air movement Cardiovascular: nl pulses, regular rate and rhythm Gastrointestinal: distended, other (Positive fluid wave) Results Result Diagram: 10/10/16 0745 10/10/16 0745 Medications Medications Current Medications Ondansetron HCl (Zofran Inj) 4 mg Q6H PRN IV NAUSEA AND/OR VOMITING Last administered on 10/06/16 09:46; Admin Dose 4 MG; Start 10/06/16 at 00:30 Pantoprazole (Protonix Iv) 40 mg DAILY@06 IV Last administered on 10/11/16 05: 41; Admin Dose 40 MG; Start 10/06/16 at 06:00 Lorazepam (Ativan) 1 mg Q6H PRN IV AGITATION/ANXIETY Last administered on 21:36; Admin Dose 1 MG; Start 10/06/16 at 03:00 Morphine Sulfate (morphine) 2 mg Q4H PRN IV PAIN LEVEL 6-10 Last administered on 10/10/16 16:44; Admin Dose 2 MG; Start 10/06/16 at 05:30 Lactulose 20 gm 20 gm Q8 PO Last administered on 10/11/16 05:41; Admin Dose 20 GM; Start 10/08/16 at 14:30 Ceftriaxone Sodium (Rocephin) 50 ml @ 100 mls/hr Q24H IVPB Last administered on 10/10/16 16:53; Admin Dose 100 MLS/HR; Start 10/08/16 at 17:02 Potassium Chloride (Klor-Con 20) 40 meq BID PO Last administered on 10/10/16 21:31; Admin Dose 40 MEQ; Start 10/10/16 at 09:30; Stop 10/11/16 at 09:29 Spironolactone (Aldactone) 50 mg DAILY PO Last administered on 10/10/16 11:27 ; Admin Dose 50 MG; Start 10/10/16 at 10:30 Thiamine HCl (Vitamin B1) 100 mg DAILY PO ; Start 10/11/16 at 09:00; Stop at 08:59 Multivit/Ca Carb/ B Cmplx/FA/Prenat (Cadence-Chris) 1 tab DAILY PO ; Start 10/11/16 at 09:00 Folic Acid (Folic Acid) 1 mg DAILY PO ; Start 10/11/16 at 09:00 TROY HERNANDEZ MD Oct 11, 2016 08:34
[2016-10-11 08:35] LABS: ABNORMAL IP MESSAGE 1; BASOPHILS % 0.7 % (0.0-2.0); EOSINOPHILS % 0.7 % (0.0-7.0); HEMATOCRIT 27.3 % (37.0-47.0); HEMOGLOBIN 8.9 g/dl (12.0-16.0); LYMPHOCYTES # 1.5 10^3/ul (0.8-2.9); LYMPHOCYTES % 35.6 % (15.0-51.0); MEAN CORPUSCULAR HEMOGLOBIN 32.8 pg (29.0-33.0); MEAN CORPUSCULAR HGB CONC 32.6 g/dl (32.0-37.0); MEAN CORPUSCULAR VOLUME 100.7 fl (82.0-101.0); MEAN PLATELET VOLUME 12.5 fl (7.4-10.4); MONOCYTE # 0.9 10^3/ul (0.3-0.9); NEUTROPHIL # 1.7 10^3/ul (1.6-7.5); PLATELET COUNT 36 10^3/UL (140-415); RED BLOOD COUNT 2.71 10^6/ul (4.20-5.40); WHITE BLOOD COUNT 4.1 10^3/ul (4.8-10.8)
[2016-10-11] MEDS: MULTIVIT/CA CARB/B CMPLX/FA TAB PO SCH (08:37)
[2016-10-11] MEDS: POTASSIUM CHLORIDE (SR) 20 MEQ TAB PO SCH (08:37)
[2016-10-11] MEDS: SPIRONOLACTONE 50 MG TAB PO SCH (08:37)
[2016-10-11] MEDS: FOLIC ACID 1 MG TAB PO SCH (08:37)
[2016-10-11] MEDS: THIAMINE 100 MG TAB PO SCH (08:37)
[2016-10-11 08:55] LABS: ALBUMIN 2.9 g/dl (3.3-4.9); ALBUMIN/GLOBULIN RATIO 0.54; BILIRUBIN,DIRECT 0.7 mg/dl (0.00-0.20); BILIRUBIN,TOTAL 1.7 mg/dl (0.2-1.3); CALCIUM 8.2 mg/dl (8.4-10.2); CREATININE 0.83 mg/dl (0.44-1.00); POTASSIUM 3.6 mmol/L (3.5-5.1); TOTAL PROTEIN 8.2 g/dl (6.1-8.1)
[2016-10-11] MEDS: NADOLOL 40 MG TAB PO SCH (09:00)
[2016-10-11 09:05] LABS: MONOCYTES % 22.8 % (0.0-11.0)
[2016-10-11] MEDS: CEFTRIAXONE 1 GM/50 ML (PMX) 50 ML IVPB SCH (17:54)
[2016-10-11] MEDS: LORAZEPAM 2 MG INJ IV PRN (22:05)
[2016-10-11 22:51] LABS: ADD UMIC YES; UR ASCORBIC ACID NEGATIVE (NEGATIVE); UR BACTERIA FEW /HPF (NONE SEEN); UR BILIRUBIN (Dip) NEGATIVE (NEGATIVE); UR BLOOD (Dip) 1+ mg/dL (NEGATIVE); UR CLARITY CLEAR (CLEAR); UR COLOR YELLOW (YELLOW); UR GLUCOSE (Dip) NEGATIVE (NEGATIVE); UR KETONES (Dip) NEGATIVE (NEGATIVE); UR LEUKOCYTE ESTERASE (Dip) NEGATIVE Leu/ul (NEGATIVE); UR NITRITE (Dip) NEGATIVE (NEGATIVE); UR RBC 1 /HPF (0-5); UR SPECIFIC GRAVITY (Dip) 1.006 (1.003-1.030); UR SQUAMOUS EPITHELIAL CELL FEW /HPF (FEW); UR TOTAL PROTEIN (Dip) NEGATIVE (NEGATIVE); UR UROBILINOGEN (Dip) 2+ mg/dL (NEGATIVE)
[2016-10-12] VITALS (11 sets, daily range): BP systolic 106–126; BP diastolic 60–96; PULSE 80–112; RESP 18–20
[2016-10-12] MEDS: morphine 2 MG INJ IV PRN ×2 (01:11→21:00)
[2016-10-12] MEDS: PANTOPRAZOLE 40 MG INJ IV SCH (06:03)
[2016-10-12] MEDS: LACTULOSE 30ML CUP PO SCH ×4 (06:03→21:00)
[2016-10-12] MEDS: FUROSEMIDE 40 MG INJ IV SCH ×2 (06:03→17:07)
[2016-10-12] MEDS: NADOLOL 40 MG TAB PO SCH (08:45)
[2016-10-12] MEDS: THIAMINE 100 MG TAB PO SCH (08:46)
[2016-10-12] MEDS: FOLIC ACID 1 MG TAB PO SCH (08:46)
[2016-10-12] MEDS: MULTIVIT/CA CARB/B CMPLX/FA TAB PO SCH (08:46)
[2016-10-12] MEDS: SPIRONOLACTONE 50 MG TAB PO SCH ×2 (08:46→21:00)
[2016-10-12 09:22] LABS: ADD SCAN DIFF NO
[2016-10-12 09:25] LABS: ABNORMAL IP MESSAGE 1; HEMATOCRIT 30.4 % (37.0-47.0); MEAN CORPUSCULAR HEMOGLOBIN 32.9 pg (29.0-33.0); MEAN CORPUSCULAR HGB CONC 32.9 g/dl (32.0-37.0); MEAN PLATELET VOLUME 12.1 fl (7.4-10.4); RED BLOOD COUNT 3.04 10^6/ul (4.20-5.40); RED CELL DISTRIBUTION WIDTH 17.1 % (11.5-14.5)
[2016-10-12 09:30] LABS: PLATELET COUNT 35 10^3/UL (140-415)
[2016-10-12 09:51] LABS: ALBUMIN/GLOBULIN RATIO 0.53; BILIRUBIN,DIRECT 0.1 mg/dl (0.00-0.20); BILIRUBIN,TOTAL 1.1 mg/dl (0.2-1.3); CALCIUM 8.7 mg/dl (8.4-10.2); CREATININE 0.78 mg/dl (0.44-1.00); POTASSIUM 3.5 mmol/L (3.5-5.1); TOTAL PROTEIN 8.6 g/dl (6.1-8.1)
[2016-10-12 10:57] LABS: MONOCYTE # 0.4 10^3/ul (0.3-0.9); NEUTROPHIL # 1.5 10^3/ul (1.6-7.5)
[2016-10-12 10:58] LABS: TARGET CELLS 1+
--- NOTE | 2016-10-12 14:28 | PN ---
Date/Time of Note Date/Time of Note DATE: 10/12/16 TIME: 14:18 Assessment/Plan VTE Prophylaxis VTE Prophylaxis Intervention: SCD's Lines/Catheters [facility] Saline Lock Urinary Cath still in place: No Assessment/Plan Chief Complaint/Hosp Course 1. Ascites/decompensated alcoholic liver cirrhosis. -Continue diuretics -Change diet to sodium restricted. -Patient has been unable to go for paracentesis due to platelet count despite multiple transfusion. -GI consult 2. Pancytopenia/coagulopathy/transaminitis with hyperbilirubinemia secondary to #1. Treatment as per above. Will monitor liver panel. 3. Hepatic encephalopathy with hyperammonemia secondary to #1. -Continue lactulose. Will continue to trend level. 4. Alcohol abuse. Cessation advised 5. Homelessness. composite bond worker to follow. DVT prophylaxis. SCDs Gastrointestinal prophylaxis. Proton pump inhibitors. Plan: Continue with physical therapy. We will follow-up with GI recommendation. Case discussed with Dr. Rivers. Problems: Subjective 24 Hr Interval Summary Free Text/Dictation Patient lying in bed comfortably. Complaining of abdominal distention. Exam/Review of Systems Vital Signs Vitals Vital Signs Date Time Temp Pulse Resp B/P Pulse Ox O2 Delivery O2 Flow Rate FiO2 10/12/16 12:35 97.0 90 18 106/73 100 10/08/16 15:30 Room Air Intake and Output 10/11/16 10/11/16 10/12/16 15:00 23:00 07:00 Intake Total 500 ml Balance 500 ml Exam General: Frail looking female, not in any acute distress . HEENT: Normocephalic, Atraumatic, No laceration or hematoma; Eyes: PEERL, Conjunctiva clear, Anicteric sclera Neck: Supple without any lymphadenopathy, nontender, no JVD, no carotid bruits, trachea midline, no thyromegaly Cardiac: S1, S2 auscultated, regular rhythm and rate, no mumurs or gallop Pulmonary: Normal respiratory effort. Chest clear to auscultation bilaterally, no adventitious breath sounds GI: Abdomen distended to inspection. no masses, no rebound tenderness or guarding. Bowel sounds active on all four quadrants Genitourinary: Deferred Extremities: No cyanosis, clubbing, or edema. Pulses [2+] bilaterally. Full ROM on all four extremities. No focal weakness appreciated. Neurologic: Confused/disoriented to time and situation. Affect withdrawn, intact sensation. Skin: Clean,dry, and intact. No ecchymosis, no rashes, or lesions Results Result Diagram: 10/12/1690310/12/16903 Results 24 hrs Laboratory Tests Test 10/11/16 19:30 10/12/16 09:04 Urine Color YELLOW Urine Clarity CLEAR Urine pH 7.0 Urine Specific [place] 1.006 Urine Ketones NEGATIVE Urine Nitrite NEGATIVE Urine Bilirubin NEGATIVE Urine Urobilinogen 2+ H Urine Leukocyte Esterase NEGATIVE Urine Microscopic RBC 1 Urine Microscopic WBC 0 Urine Squamous Epithelial Cells FEW Urine Bacteria FEW A Urine Hemoglobin 1+ H Urine Random Sodium 141 H Urine Random Potassium 31.0 Urine Glucose NEGATIVE Urine Total Protein NEGATIVE White Blood Count 4.0 L Red Blood Count 3.04 L Hemoglobin 10.0 L Hematocrit 30.4 L Mean Corpuscular Volume 100.0 Mean Corpuscular Hemoglobin 32.9 Mean Corpuscular Hemoglobin Concent 32.9 Red Cell Distribution Width 17.1 H Platelet Count 35 L Mean Platelet Volume 12.1 H Neutrophils % 38.0 L Lymphocytes % 51.0 Monocytes % 11.0 Neutrophils # 1.5 L Lymphocytes # 2.0 Monocytes # 0.4 Macrocytosis 1+ Target Cells 1+ Sodium Level 143 Potassium Level 3.5 Chloride Level 105 Carbon Dioxide Level 28 Anion Gap 14 Blood Urea Nitrogen 11 Creatinine 0.78 Glucose Level 101 Calcium Level 8.7 Total Bilirubin 1.1 Direct Bilirubin 0.10 # Indirect Bilirubin 1.0 Aspartate Amino Transf (AST/SGOT) 129 H Alanine Aminotransferase (ALT/SGPT) 50 Alkaline Phosphatase 232 H Total Protein 8.6 H Albumin 3.0 L Globulin 5.60 H Albumin/Globulin Ratio 0.53 Medications Medications Current Medications Ondansetron HCl (Zofran Inj) 4 mg Q6H PRN IV NAUSEA AND/OR VOMITING Last administered on 10/06/16 09:46; Admin Dose 4 MG; Start 10/06/16 at 00:30 Pantoprazole (Protonix Iv) 40 mg DAILY@06 IV Last administered on 10/12/16 06: 03; Admin Dose 40 MG; Start 10/06/16 at 06:00 Lorazepam (Ativan) 1 mg Q6H PRN IV AGITATION/ANXIETY Last administered on 22:05; Admin Dose 1 MG; Start 10/06/16 at 03:00 Morphine Sulfate (morphine) 2 mg Q4H PRN IV PAIN LEVEL 6-10 Last administered on 10/12/16 01:11; Admin Dose 2 MG; Start 10/06/16 at 05:30 Lactulose 20 gm 20 gm Q8 PO Last administered on 10/12/16 06:03; Admin Dose 20 GM; Start 10/08/16 at 14:30 Ceftriaxone Sodium (Rocephin) 50 ml @ 100 mls/hr Q24H IVPB Last administered on 10/11/16 17:54; Admin Dose 100 MLS/HR; Start 10/08/16 at 17:02 Spironolactone (Aldactone) 50 mg DAILY PO Last administered on 10/12/16 08:46 ; Admin Dose 50 MG; Start 10/10/16 at 10:30 Thiamine HCl (Vitamin B1) 100 mg DAILY PO Last administered on 10/12/16 08:46 ; Admin Dose 100 MG; Start 10/11/16 at 09:00; Stop 10/17/16 at 08:59 Multivit/Ca Carb/ B Cmplx/FA/Prenat (Cadence-Chris) 1 tab DAILY PO Last administered on 10/12/16 08:46; Admin Dose 1 TAB; Start 10/11/16 at 09:00 Folic Acid (Folic Acid) 1 mg DAILY PO Last administered on 10/12/16 08:46; Admin Dose 1 MG; Start 10/11/16 at 09:00 Nadolol (Corgard) 40 mg DAILY PO Last administered on 10/12/16 08:45; Admin Dose 40 MG; Start 10/11/16 at 09:00 FRIDA NORMAN NP Oct 12, 2016 14:28
[2016-10-12] MEDS: CEFTRIAXONE 1 GM/50 ML (PMX) 50 ML IVPB SCH (17:07)
--- NOTE | 2016-10-12 18:28 | CONS ---
Date/Time of Note Date/Time of Note DATE: 10/12/16 TIME: 18:27 Assessment/Plan Assessment/Plan Additional Assessment/Plan Assessment: * Refractory ascites * Severe thrombocytopenia precluding paracenteses * End-stage alcoholic liver disease * Massive ascites/refractory * Coagulopathy * Thrombocytopenia * Mild portosystemic encephalopathy * Hypersplenism * Alcohol abuse * History of hypertension Plan: * Strict 2 g sodium and 1500 cc fluid restriction * Aldactone 100 mg twice daily/Lasix 40 mg twice daily/midodrine 5 mg 3 times daily * Consider hematology consult * Consider holding beta blockers to improve renal perfusion * If no improvement the patient should be considered for TIPSS unfortunately no longer available at [facility] Consultation Date/Type/Reason Admit Date/Time Oct 05, 2016 at 23:21 Date of Consultation: Oct 12, 2016 Type of Consultation: GI Reason for Consultation * Refractory ascites Hx of Present Illness 61-year-old female with known alcoholic liver disease/cirrhosis, recurrent ascites previously treated with therapeutic paracentesis. Currently hospitalized with significant ascites leading to some respiratory embarrassment , unfortunately her platelets have remained in the 30,000 range despite multiple transfusions making therapeutic paracentesis to risk it from the interventional radiology point of view. The patient is currently on Lasix 40 mg twice daily and Aldactone 50 mg. Her blood pressure is adequate on beta- blockers. Her meld score is 13. The patient is not encephalopathic at the present time. Unfortunately the options are limited I will try increasing spironolactone to 100 mg twice daily and add in midodrine to attempt to increase renal flow. Should also strictly enforced fluid restriction 1500 cc per day. If this does not result in significant improvement the patient should be considered for TIPSS as a way to manage portal hypertension which is the underlying cause of significant ascites. Other alternatives would include liver transplantation but this obviously implies a much more significant intervention. Constitutional: other (Some shortness of breath) Respiratory: other (Some shortness of breath) Cardiovascular: no complaints Gastrointestinal: other (Significant abdominal distention), pain (Diffuse abdominal pain) Genitourinary: no complaints Past Medical History * Alcoholic cirrhosis * Ascites * Coagulopathy * Thrombocytopenia * History of alcohol abuse * Hypertension Past Surgical History Past Surgical Hx: no surgical history Family History Significant Family History: no pertinent family hx Social History Alcohol Use: other (Abstinent at present) Smoking Status: Never smoker Drug Use: marijuana Exam/Review of Systems Vital Signs Vitals Vital Signs Date Time Temp Pulse Resp B/P Pulse Ox O2 Delivery O2 Flow Rate FiO2 10/12/16 16:10 82 10/12/16 15:53 98.1 19 126/87 98 10/08/16 15:30 Room Air Intake and Output 10/11/16 10/11/16 10/12/16 15:00 23:00 07:00 Intake Total 500 ml Balance 500 ml Exam Constitutional: alert, frail, oriented, other (Under nourished, significant ascites) Head: atraumatic, normocephalic Neck: non-tender, supple Respiratory: diminished breath sounds (Due to increased abdominal distention due to ascites) Cardiovascular: regular rate and rhythm, No edema Gastrointestinal: ascites (Significant), bowel sounds, distended, soft, tender (Mild diffuse tenderness), No rebound or guarding Musculoskeletal: nl extremities to inspection, No swelling Skin: other (Positive stigmata of liver disease), No rash or lesions Lymph: No nl lymph nodes Results Result Diagram: 10/12/1690310/12/16 0904 Results 24 hrs Laboratory Tests Test 10/11/16 19:30 10/12/16 09:04 Urine Color YELLOW Urine Clarity CLEAR Urine pH 7.0 Urine Specific [place] 1.006 Urine Ketones NEGATIVE Urine Nitrite NEGATIVE Urine Bilirubin NEGATIVE Urine Urobilinogen 2+ H Urine Leukocyte Esterase NEGATIVE Urine Microscopic RBC 1 Urine Microscopic WBC 0 Urine Squamous Epithelial Cells FEW Urine Bacteria FEW A Urine Hemoglobin 1+ H Urine Random Sodium 141 H Urine Random Potassium 31.0 Urine Glucose NEGATIVE Urine Total Protein NEGATIVE White Blood Count 4.0 L Red Blood Count 3.04 L Hemoglobin 10.0 L Hematocrit 30.4 L Mean Corpuscular Volume 100.0 Mean Corpuscular Hemoglobin 32.9 Mean Corpuscular Hemoglobin Concent 32.9 Red Cell Distribution Width 17.1 H Platelet Count 35 L Mean Platelet Volume 12.1 H Neutrophils % 38.0 L Lymphocytes % 51.0 Monocytes % 11.0 Neutrophils # 1.5 L Lymphocytes # 2.0 Monocytes # 0.4 Macrocytosis 1+ Target Cells 1+ Sodium Level 143 Potassium Level 3.5 Chloride Level 105 Carbon Dioxide Level 28 Anion Gap 14 Blood Urea Nitrogen 11 Creatinine 0.78 Glucose Level 101 Calcium Level 8.7 Total Bilirubin 1.1 Direct Bilirubin 0.10 # Indirect Bilirubin 1.0 Aspartate Amino Transf (AST/SGOT) 129 H Alanine Aminotransferase (ALT/SGPT) 50 Alkaline Phosphatase 232 H Total Protein 8.6 H Albumin 3.0 L Globulin 5.60 H Albumin/Globulin Ratio 0.53 Medications Medications Current Medications Ondansetron HCl (Zofran Inj) 4 mg Q6H PRN IV NAUSEA AND/OR VOMITING Last administered on 10/06/16 09:46; Admin Dose 4 MG; Start 10/06/16 at 00:30 Pantoprazole (Protonix Iv) 40 mg DAILY@06 IV Last administered on 10/12/16 06: 03; Admin Dose 40 MG; Start 10/06/16 at 06:00 Lorazepam (Ativan) 1 mg Q6H PRN IV AGITATION/ANXIETY Last administered on 22:05; Admin Dose 1 MG; Start 10/06/16 at 03:00 Morphine Sulfate (morphine) 2 mg Q4H PRN IV PAIN LEVEL 6-10 Last administered on 10/12/16 01:11; Admin Dose 2 MG; Start 10/06/16 at 05:30 Lactulose 20 gm 20 gm Q8 PO Last administered on 10/12/16 16:10; Admin Dose 20 GM; Start 10/08/16 at 14:30 Ceftriaxone Sodium (Rocephin) 50 ml @ 100 mls/hr Q24H IVPB Last administered on 10/12/16 17:07; Admin Dose 100 MLS/HR; Start 10/08/16 at 17:02 Spironolactone (Aldactone) 50 mg DAILY PO Last administered on 10/12/16 08:46 ; Admin Dose 50 MG; Start 10/10/16 at 10:30 Thiamine HCl (Vitamin B1) 100 mg DAILY PO Last administered on 10/12/16 08:46 ; Admin Dose 100 MG; Start 10/11/16 at 09:00; Stop 10/17/16 at 08:59 Multivit/Ca Carb/ B Cmplx/FA/Prenat (Cadence-Chris) 1 tab DAILY PO Last administered on 10/12/16 08:46; Admin Dose 1 TAB; Start 10/11/16 at 09:00 Folic Acid (Folic Acid) 1 mg DAILY PO Last administered on 10/12/16 08:46; Admin Dose 1 MG; Start 10/11/16 at 09:00 Nadolol (Corgard) 40 mg DAILY PO Last administered on 10/12/16t 08:45; Admin Dose 40 MG; Start 10/11/16 at 09:00 LETHA BOYLE MD Oct 12, 2016 18:28
[2016-10-13] VITALS (15 sets, daily range): BP systolic 100–118; BP diastolic 56–80; PULSE 75–90; RESP 18–20
[2016-10-13] MEDS: PANTOPRAZOLE 40 MG INJ IV SCH (05:44)
[2016-10-13] MEDS: FUROSEMIDE 40 MG INJ IV SCH ×2 (05:45→18:12)
[2016-10-13] MEDS: LACTULOSE 30ML CUP PO SCH ×3 (05:45→21:21)
[2016-10-13 07:59] LABS: ADD SCAN DIFF NO
[2016-10-13 08:05] LABS: ABNORMAL IP MESSAGE 1; EOSINOPHILS % 0.7 % (0.0-7.0); HEMATOCRIT 27.5 % (37.0-47.0); LYMPHOCYTES # 1.8 10^3/ul (0.8-2.9); LYMPHOCYTES % 43.3 % (15.0-51.0); MEAN CORPUSCULAR HEMOGLOBIN 32.4 pg (29.0-33.0); MEAN CORPUSCULAR HGB CONC 32.7 g/dl (32.0-37.0); MEAN CORPUSCULAR VOLUME 98.9 fl (82.0-101.0); MONOCYTE # 0.9 10^3/ul (0.3-0.9); NEUTROPHIL # 1.3 10^3/ul (1.6-7.5); NEUTROPHILS % 31.8 % (39.0-77.0); RED BLOOD COUNT 2.78 10^6/ul (4.20-5.40); RED CELL DISTRIBUTION WIDTH 16.9 % (11.5-14.5); WHITE BLOOD COUNT 4.1 10^3/ul (4.8-10.8)
[2016-10-13 08:18] LABS: MONOCYTES % 22.7 % (0.0-11.0); PLATELET COUNT 33 10^3/UL (140-415)
[2016-10-13 08:41] LABS: ALBUMIN 2.2 g/dl (3.3-4.9); BILIRUBIN,INDIRECT 0.6 mg/dl (0-1.1); BILIRUBIN,TOTAL 0.6 mg/dl (0.2-1.3); CALCIUM 8.9 mg/dl (8.4-10.2); CREATININE 0.69 mg/dl (0.44-1.00); POTASSIUM 3.4 mmol/L (3.5-5.1); TOTAL PROTEIN 7.6 g/dl (6.1-8.1)
[2016-10-13] MEDS: MULTIVIT/CA CARB/B CMPLX/FA TAB PO SCH (09:25)
[2016-10-13] MEDS: SPIRONOLACTONE 50 MG TAB PO SCH ×2 (09:26→21:22)
[2016-10-13] MEDS: MIDODRINE 5 MG TAB NGT SCH ×3 (09:28→18:06)
[2016-10-13] MEDS: FOLIC ACID 1 MG TAB PO SCH (09:28)
[2016-10-13] MEDS: THIAMINE 100 MG TAB PO SCH (09:30)
[2016-10-13] MEDS: morphine 2 MG INJ IV PRN ×2 (10:26→21:22)
--- NOTE | 2016-10-13 14:23 | PN ---
Date/Time of Note Date/Time of Note DATE: 10/13/16 TIME: 14:15 Assessment/Plan VTE Prophylaxis VTE Prophylaxis Intervention: ambulation, SCD's Lines/Catheters [facility] Saline Lock Urinary Cath still in place: No Assessment/Plan Chief Complaint/Hosp Course 1. 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 Symptoms improved. -Continue diuretics -Sodium restricted diet. -Patient has been unable to go for paracentesis due to platelet count despite multiple transfusion. -GI evaluation appreciated and patient has been started on Aldactone and midodrine 2. Pancytopenia/coagulopathy/transaminitis with hyperbilirubinemia secondary to #1. -Treatment as per above. No bleeding episodes. No further drop in platelets. Will monitor. 3. Hepatic encephalopathy with hyperammonemia secondary to #1. Improved. -Continue lactulose. Will continue to trend level. 4. Alcohol abuse. Cessation advised 5. Homelessness. Hospital social services coordinator note, patient is planning to go back to her daughter's house after discharge. DVT prophylaxis. SCDs Gastrointestinal prophylaxis. Proton pump inhibitors. Plan: Continue with physical therapy. Continue current diet. If patient remains stable without further abdominal distention over the next 24 hours, consider discharge planning with outpatient GI follow-up to monitor patient . Case discussed with Dr. Rivers. Problems: Subjective 24 Hr Interval Summary Free Text/Dictation Today patient is more awake and cooperative. She has been eating without any difficulties. Denies nausea, vomiting or abdominal discomfort at this time. Has been having bowel movements. Exam/Review of Systems Vital Signs Vitals Vital Signs Date Time Temp Pulse Resp B/P Pulse Ox O2 Delivery O2 Flow Rate FiO2 10/13/16 12:07 87 10/13/16 11:48 97.8 18 109/67 96 10/13/16 10:44 Nasal Cannula 2.0 Intake and Output 10/12/16 10/12/16 10/13/16 15:00 23:00 07:00 Intake Total 450 ml 400 ml Balance 450 ml 400 ml Exam General: Frail looking female, not in any acute distress . HEENT: Normocephalic, Atraumatic, No laceration or hematoma; Eyes: PEERL, Conjunctiva clear, Anicteric sclera Neck: Supple without any lymphadenopathy, nontender, no JVD, no carotid bruits, trachea midline, no thyromegaly Cardiac: S1, S2 auscultated, regular rhythm and rate, no mumurs or gallop Pulmonary: Normal respiratory effort. Chest clear to auscultation bilaterally, no adventitious breath sounds GI: Abdomen distended to inspection. no masses, no rebound tenderness or guarding. Bowel sounds active on all four quadrants Genitourinary: Deferred Extremities: No cyanosis, clubbing, or edema. Pulses [2+] bilaterally. Full ROM on all four extremities. No focal weakness appreciated. Neurologic: Confused/disoriented to time and situation. Affect withdrawn, intact sensation. Skin: Clean,dry, and intact. No ecchymosis, no rashes, or lesions Results Result Diagram: 10/13/1671210/13/16712 Results 24 hrs Laboratory Tests Test 10/13/16 07:13 White Blood Count 4.1 L Red Blood Count 2.78 L Hemoglobin 9.0 L Hematocrit 27.5 L Mean Corpuscular Volume 98.9 Mean Corpuscular Hemoglobin 32.4 Mean Corpuscular Hemoglobin Concent 32.7 Red Cell Distribution Width 16.9 H Platelet Count 33 L Mean Platelet Volume 11.0 H Neutrophils % 31.8 L Lymphocytes % 43.3 Monocytes % 22.7 H Eosinophils % 0.7 Basophils % 1.0 Nucleated Red Blood Cells % 0.0 Neutrophils # 1.3 L Lymphocytes # 1.8 Monocytes # 0.9 Eosinophils # 0.0 Basophils # 0.0 Nucleated Red Blood Cells # 0.0 Sodium Level 144 Potassium Level 3.4 L Chloride Level 101 Carbon Dioxide Level 30 Anion Gap 16 Blood Urea Nitrogen 14 Creatinine 0.69 Glucose Level 93 Calcium Level 8.9 Total Bilirubin 0.6 Direct Bilirubin 0.00 Indirect Bilirubin 0.6 Aspartate Amino Transf (AST/SGOT) 105 H Alanine Aminotransferase (ALT/SGPT) 45 Alkaline Phosphatase 184 H Ammonia 15 # Total Protein 7.6 # Albumin 2.2 L Medications Medications Current Medications Ondansetron HCl (Zofran Inj) 4 mg Q6H PRN IV NAUSEA AND/OR VOMITING Last administered on 10/06/16 09:46; Admin Dose 4 MG; Start 10/06/16 at 00:30 Pantoprazole (Protonix Iv) 40 mg DAILY@06 IV Last administered on 10/13/16 05: 44; Admin Dose 40 MG; Start 10/06/16 at 06:00 Lorazepam (Ativan) 1 mg Q6H PRN IV AGITATION/ANXIETY Last administered on 22:05; Admin Dose 1 MG; Start 10/06/16 at 03:00 Morphine Sulfate (morphine) 2 mg Q4H PRN IV PAIN LEVEL 6-10 Last administered on 10/13/16 10:26; Admin Dose 2 MG; Start 10/06/16 at 05:30 Lactulose 20 gm 20 gm Q8 PO Last administered on 10/13/16 14:00; Admin Dose 20 GM; Start 10/08/16 at 14:30 Ceftriaxone Sodium (Rocephin) 50 ml @ 100 mls/hr Q24H IVPB Last administered on 10/12/16 17:07; Admin Dose 100 MLS/HR; Start 10/08/16 at 17:02 Thiamine HCl (Vitamin B1) 100 mg DAILY PO Last administered on 10/13/16 09:30 ; Admin Dose 100 MG; Start 10/11/16 at 09:00; Stop 10/17/16 at 08:59 Multivit/Ca Carb/ B Cmplx/FA/Prenat (Cadence-Chris) 1 tab DAILY PO Last administered on 10/13/16 09:25; Admin Dose 1 TAB; Start 10/11/16 at 09:00 Folic Acid (Folic Acid) 1 mg DAILY PO Last administered on 10/13/16 09:28; Admin Dose 1 MG; Start 10/11/16 at 09:00 Spironolactone (Aldactone) 100 mg BID PO Last administered on 10/13/16 09:26; Admin Dose 100 MG; Start 10/12/16 at 21:00 Midodrine (Proamatine) 5 mg TID@,,17 NGT Last administered on 10/13/16 09: 28; Admin Dose 5 MG; Start 10/13/16 at 09:00 FRIDA NORMAN NP Oct 13, 2016 14:23
--- NOTE | 2016-10-13 15:29 | PN ---
Date/Time of Note Date/Time of Note DATE: 10/13/16 TIME: 15:25 Assessment/Plan VTE Prophylaxis VTE Prophylaxis Intervention: ambulation Lines/Catheters IV Catheter Type (from [facility]): Saline Lock Urinary Cath still in place: No Assessment/Plan Assessment/Plan Assessment: * Refractory ascites * Severe thrombocytopenia precluding paracenteses * End-stage alcoholic liver disease * Massive ascites/refractory * Coagulopathy * Thrombocytopenia * Mild portosystemic encephalopathy * Hypersplenism * Alcohol abuse * History of hypertension Plan: * Strict 2 g sodium and 1500 cc fluid restriction * continue present management * Consider holding beta blockers to improve renal perfusion * If no improvement the patient should be considered for TIPSS unfortunately no longer available at [facility] * case discussed with DR Kiran * Further orders will depend on clinical course Subjective 24 Hr Interval Summary Free Text/Dictation * Course reviewed with RN * Patient seen and examined * No untoward events overnight Exam/Review of Systems Vital Signs Vitals Vital Signs Date Time Temp Pulse Resp B/P Pulse Ox O2 Delivery O2 Flow Rate FiO2 10/13/16 15:14 88 102/75 10/13/16 11:48 97.8 18 96 10/13/16 10:44 Nasal Cannula 2.0 Intake and Output 10/12/16 10/12/16 10/13/16 15:00 23:00 07:00 Intake Total 450 ml 400 ml Balance 450 ml 400 ml Exam Constitutional: frail Psych: nl mood/affect, no complaints Neck: non-tender, supple Respiratory: clear to auscultation, normal air movement Cardiovascular: nl pulses, regular rate and rhythm Gastrointestinal: ascites, bowel sounds, distended, non-tender, soft, No rebound or guarding Musculoskeletal: muscle weakness Extremities: edema Neurological: nl speech Skin: nl turgor, No rash or lesions Results Result Diagram: 10/13/1613 10/13/1613 Results 24 hrs Laboratory Tests Test 10/13/16 07:13 White Blood Count 4.1 L Red Blood Count 2.78 L Hemoglobin 9.0 L Hematocrit 27.5 L Mean Corpuscular Volume 98.9 Mean Corpuscular Hemoglobin 32.4 Mean Corpuscular Hemoglobin Concent 32.7 Red Cell Distribution Width 16.9 H Platelet Count 33 L Mean Platelet Volume 11.0 H Neutrophils % 31.8 L Lymphocytes % 43.3 Monocytes % 22.7 H Eosinophils % 0.7 Basophils % 1.0 Nucleated Red Blood Cells % 0.0 Neutrophils # 1.3 L Lymphocytes # 1.8 Monocytes # 0.9 Eosinophils # 0.0 Basophils # 0.0 Nucleated Red Blood Cells # 0.0 Sodium Level 144 Potassium Level 3.4 L Chloride Level 101 Carbon Dioxide Level 30 Anion Gap 16 Blood Urea Nitrogen 14 Creatinine 0.69 Glucose Level 93 Calcium Level 8.9 Total Bilirubin 0.6 Direct Bilirubin 0.00 Indirect Bilirubin 0.6 Aspartate Amino Transf (AST/SGOT) 105 H Alanine Aminotransferase (ALT/SGPT) 45 Alkaline Phosphatase 184 H Ammonia 15 # Total Protein 7.6 # Albumin 2.2 L Medications Medications Current Medications Ondansetron HCl (Zofran Inj) 4 mg Q6H PRN IV NAUSEA AND/OR VOMITING Last administered on 10/06/16 09:46; Admin Dose 4 MG; Start 10/06/16 at 00:30 Pantoprazole (Protonix Iv) 40 mg DAILY@06 IV Last administered on 10/13/16 05: 44; Admin Dose 40 MG; Start 10/06/16 at 06:00 Lorazepam (Ativan) 1 mg Q6H PRN IV AGITATION/ANXIETY Last administered on 22:05; Admin Dose 1 MG; Start 10/06/16 at 03:00 Morphine Sulfate (morphine) 2 mg Q4H PRN IV PAIN LEVEL 6-10 Last administered on 10/13/16 10:26; Admin Dose 2 MG; Start 10/06/16 at 05:30 Lactulose 20 gm 20 gm Q8 PO Last administered on 10/13/16 14:00; Admin Dose 20 GM; Start 10/08/16 at 14:30 Ceftriaxone Sodium (Rocephin) 50 ml @ 100 mls/hr Q24H IVPB Last administered on 10/12/16 17:07; Admin Dose 100 MLS/HR; Start 10/08/16 at 17:02 Thiamine HCl (Vitamin B1) 100 mg DAILY PO Last administered on 10/13/16 09:30 ; Admin Dose 100 MG; Start 10/11/16 at 09:00; Stop 10/17/16 at 08:59 Multivit/Ca Carb/ B Cmplx/FA/Prenat (Cadence-Chris) 1 tab DAILY PO Last administered on 10/13/16 09:25; Admin Dose 1 TAB; Start 10/11/16 at 09:00 Folic Acid (Folic Acid) 1 mg DAILY PO Last administered on 10/13/16 09:28; Admin Dose 1 MG; Start 10/11/16 at 09:00 Spironolactone (Aldactone) 100 mg BID PO Last administered on 10/13/16 09:26; Admin Dose 100 MG; Start 10/12/16 at 21:00 Midodrine (Proamatine) 5 mg TID@,,17 NGT Last administered on 10/13/16 15: 11; Admin Dose 5 MG; Start 10/13/16 at 09:00 BEATA BRASWELL NP Oct 13, 2016 15:28
[2016-10-13] MEDS: CEFTRIAXONE 1 GM/50 ML (PMX) 50 ML IVPB SCH (18:11)
[2016-10-14] VITALS (14 sets, daily range): BP systolic 87–110; BP diastolic 50–68; PULSE 70–88; RESP 15–19
[2016-10-14] MEDS: FUROSEMIDE 40 MG INJ IV SCH ×2 (05:29→21:18)
[2016-10-14] MEDS: LACTULOSE 30ML CUP PO SCH ×4 (05:33→21:26)
[2016-10-14] MEDS: PANTOPRAZOLE 40 MG INJ IV SCH (05:33)
[2016-10-14 08:31] LABS: ADD SCAN DIFF NO
[2016-10-14 08:38] LABS: ABNORMAL IP MESSAGE 1; BASOPHILS % 0.7 % (0.0-2.0); EOSINOPHILS % 0.7 % (0.0-7.0); HEMATOCRIT 25.2 % (37.0-47.0); HEMOGLOBIN 8.5 g/dl (12.0-16.0); LYMPHOCYTES % 48.9 % (15.0-51.0); MEAN CORPUSCULAR HEMOGLOBIN 32.7 pg (29.0-33.0); MEAN CORPUSCULAR HGB CONC 33.7 g/dl (32.0-37.0); MEAN CORPUSCULAR VOLUME 96.9 fl (82.0-101.0); MEAN PLATELET VOLUME 11.7 fl (7.4-10.4); MONOCYTE # 0.9 10^3/ul (0.3-0.9); NEUTROPHIL # 1.2 10^3/ul (1.6-7.5); NEUTROPHILS % 28.3 % (39.0-77.0); RED CELL DISTRIBUTION WIDTH 16.5 % (11.5-14.5); WHITE BLOOD COUNT 4.2 10^3/ul (4.8-10.8)
[2016-10-14 08:44] LABS: MONOCYTES % 21.2 % (0.0-11.0); PLATELET COUNT 33 10^3/UL (140-415)
[2016-10-14 08:54] LABS: CALCIUM 8.3 mg/dl (8.4-10.2); CREATININE 0.75 mg/dl (0.44-1.00); POTASSIUM 3.1 mmol/L (3.5-5.1)
[2016-10-14] MEDS: SPIRONOLACTONE 50 MG TAB PO SCH ×2 (09:13→21:20)
[2016-10-14] MEDS: MULTIVIT/CA CARB/B CMPLX/FA TAB PO SCH (09:13)
[2016-10-14] MEDS: THIAMINE 100 MG TAB PO SCH (09:14)
[2016-10-14] MEDS: FOLIC ACID 1 MG TAB PO SCH (09:14)
[2016-10-14] MEDS: MIDODRINE 5 MG TAB NGT SCH ×3 (09:35→14:36)
--- NOTE | 2016-10-14 13:53 | PN ---
Date/Time of Note Date/Time of Note DATE: 10/14/16 TIME: 13:53 Assessment/Plan VTE Prophylaxis VTE Prophylaxis Intervention: SCD's Lines/Catheters IV Catheter Type (from [facility]): Saline Lock Urinary Cath still in place: No Assessment/Plan Chief Complaint/Hosp Course 1. 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 --We will try transfusing her with platelet today and attempt paracentesis tomorrow -Continue medical management with diuretics, Aldactone and sodium restricted diet. -GI evaluation appreciated and patient has been started on Aldactone and midodrine -Consider palliative care medicine consult 2. Pancytopenia/coagulopathy/transaminitis with hyperbilirubinemia secondary to #1. -Treatment as per above. No bleeding episodes. No further drop in platelets. Will monitor. 3. Hepatic encephalopathy with hyperammonemia secondary to #1. Improved. -Continue lactulose. Will continue to trend level. 4. Alcohol abuse. Cessation advised 5. Homelessness. Hospital clinical social work aide note, patient is planning to go back to her daughter's house after discharge. DVT prophylaxis. SCDs Gastrointestinal prophylaxis. Proton pump inhibitors. Disposition/plan: We will attempt paracentesis in a.m. after platelet transfusion, there is no emergent indication for TIPS procedure, also [facility] does not offer it at this time. We will also consult palliative care medicine. If patient's symptoms remained stable thereafter, estimated discharge in 1-2 days with primary care follow-up which has been already arranged. Case discussed with Dr. Rivers. Problems: Subjective 24 Hr Interval Summary Free Text/Dictation Today patient with more abdominal distention and discomfort. Tolerating diet. Exam/Review of Systems Vital Signs Vitals Vital Signs Date Time Temp Pulse Resp B/P Pulse Ox O2 Delivery O2 Flow Rate FiO2 10/14/16 12:22 78 10/14/16 11:52 98.5 18 87/61 96 10/14/16 11:09 Nasal Cannula 2.0 Intake and Output 10/13/16 10/13/16 10/14/16 15:00 23:00 07:00 Intake Total 750 ml 240 ml Balance 750 ml 240 ml Exam General: Frail looking female, not in any acute distress . HEENT: Normocephalic, Atraumatic, No laceration or hematoma; Eyes: PEERL, Conjunctiva clear, Anicteric sclera Neck: Supple without any lymphadenopathy, nontender, no JVD, no carotid bruits, trachea midline, no thyromegaly Cardiac: S1, S2 auscultated, regular rhythm and rate, no mumurs or gallop Pulmonary: Normal respiratory effort. Chest clear to auscultation bilaterally, no adventitious breath sounds GI: Abdomen very distended to inspection. no masses, no rebound tenderness or guarding. Bowel sounds active on all four quadrants Genitourinary: Deferred Extremities: No cyanosis, clubbing, or edema. Pulses [2+] bilaterally. Full ROM on all four extremities. No focal weakness appreciated. Neurologic: Confused/disoriented to time and situation. Affect withdrawn, intact sensation. Skin: Clean,dry, and intact. No ecchymosis, no rashes, or lesions Results Result Diagram: 10/14/16 0800 10/14/16 0800 Results 24 hrs Laboratory Tests Test 10/14/16 08:00 White Blood Count 4.2 L Red Blood Count 2.60 L Hemoglobin 8.5 L Hematocrit 25.2 L Mean Corpuscular Volume 96.9 Mean Corpuscular Hemoglobin 32.7 Mean Corpuscular Hemoglobin Concent 33.7 Red Cell Distribution Width 16.5 H Platelet Count 33 L Mean Platelet Volume 11.7 H Neutrophils % 28.3 L Lymphocytes % 48.9 Monocytes % 21.2 H Eosinophils % 0.7 Basophils % 0.7 Nucleated Red Blood Cells % 0.0 Neutrophils # 1.2 L Lymphocytes # 2.0 Monocytes # 0.9 Eosinophils # 0.0 Basophils # 0.0 Nucleated Red Blood Cells # 0.0 Sodium Level 143 Potassium Level 3.1 L Chloride Level 104 Carbon Dioxide Level 30 Anion Gap 12 Blood Urea Nitrogen 14 Creatinine 0.75 Glucose Level 82 Calcium Level 8.3 L Medications Medications Current Medications Ondansetron HCl (Zofran Inj) 4 mg Q6H PRN IV NAUSEA AND/OR VOMITING Last administered on 10/06/16 09:46; Admin Dose 4 MG; Start 10/06/16 at 00:30 Pantoprazole (Protonix Iv) 40 mg DAILY@06 IV Last administered on 10/14/16 05: 33; Admin Dose 40 MG; Start 10/06/16 at 06:00 Lorazepam (Ativan) 1 mg Q6H PRN IV AGITATION/ANXIETY Last administered on 22:05; Admin Dose 1 MG; Start 10/06/16 at 03:00 Morphine Sulfate (morphine) 2 mg Q4H PRN IV PAIN LEVEL 6-10 Last administered on 10/13/16 21:22; Admin Dose 2 MG; Start 10/06/16 at 05:30 Lactulose 20 gm 20 gm Q8 PO Last administered on 10/14/16 05:33; Admin Dose 20 GM; Start 10/08/16 at 14:30 Ceftriaxone Sodium (Rocephin) 50 ml @ 100 mls/hr Q24H IVPB Last administered on 10/13/16 18:11; Admin Dose 100 MLS/HR; Start 10/08/16 at 17:02 Thiamine HCl (Vitamin B1) 100 mg DAILY PO Last administered on 10/14/16 09:14 ; Admin Dose 100 MG; Start 10/11/16 at 09:00; Stop 10/17/16 at 08:59 Multivit/Ca Carb/ B Cmplx/FA/Prenat (Cadence-Chris) 1 tab DAILY PO Last administered on 10/14/16 09:13; Admin Dose 1 TAB; Start 10/11/16 at 09:00 Folic Acid (Folic Acid) 1 mg DAILY PO Last administered on 10/14/16 09:14; Admin Dose 1 MG; Start 10/11/16 at 09:00 Spironolactone (Aldactone) 100 mg BID PO Last administered on 10/14/16 09:13; Admin Dose 100 MG; Start 10/12/16 at 21:00 Midodrine (Proamatine) 5 mg TID@,, NGT Last administered on 10/14/16 09: 35; Admin Dose 5 MG; Start 10/13/16 at 09:00 FRIDA NORMAN NP Oct 14, 2016 13:53 FRIDA NORMAN NP Oct 14, 2016 13:53
[2016-10-14] MEDS: morphine 2 MG INJ IV PRN (14:18)
[2016-10-14] MEDS ORDERED: SOD CHLORIDE 0.9% 250 ML IV* ONE (14:46)
--- NOTE | 2016-10-14 15:26 | PN ---
Date/Time of Note Date/Time of Note DATE: 10/14/16 TIME: 15:23 Assessment/Plan VTE Prophylaxis VTE Prophylaxis Intervention: SCD's Lines/Catheters [facility] Saline Lock Urinary Cath still in place: No Assessment/Plan Assessment/Plan Assessment: * Refractory ascites * Severe thrombocytopenia precluding paracenteses * End-stage alcoholic liver disease * Massive ascites/refractory * Coagulopathy * Thrombocytopenia * Mild portosystemic encephalopathy * Hypersplenism * Alcohol abuse * History of hypertension Plan: * Strict 2 g sodium and 1500 cc fluid restriction * continue present management * Consider holding beta blockers to improve renal perfusion * If no improvement the patient should be considered for TIPSS unfortunately no longer available at [facility] * case discussed with DR Kiran * Further orders will depend on clinical course Subjective 24 Hr Interval Summary Free Text/Dictation * Course reviewed with RN * Patient seen and examined * Intake /output 950 cc * abdominal discomfort Exam/Review of Systems Vital Signs Vitals Vital Signs Date Time Temp Pulse Resp B/P Pulse Ox O2 Delivery O2 Flow Rate FiO2 10/14/16 12:22 78 10/14/16 11:52 98.5 18 87/61 96 10/14/16 11:09 Nasal Cannula 2.0 Intake and Output 10/13/16 10/13/16 10/14/16 15:00 23:00 07:00 Intake Total 750 ml 240 ml Balance 750 ml 240 ml Exam Constitutional: alert, frail Head: atraumatic, normocephalic Neck: non-tender, supple Respiratory: clear to auscultation, normal air movement Cardiovascular: nl pulses, regular rate and rhythm Gastrointestinal: ascites, bowel sounds, distended, soft, No rebound or guarding Musculoskeletal: muscle weakness, swelling Extremities: edema Neurological: nl speech Skin: nl turgor, No rash or lesions Lymph: nl lymph nodes Results Result Diagram: 10/14/16 0800 10/14/16 0800 Results 24 hrs Laboratory Tests Test 10/14/16 08:00 White Blood Count 4.2 L Red Blood Count 2.60 L Hemoglobin 8.5 L Hematocrit 25.2 L Mean Corpuscular Volume 96.9 Mean Corpuscular Hemoglobin 32.7 Mean Corpuscular Hemoglobin Concent 33.7 Red Cell Distribution Width 16.5 H Platelet Count 33 L Mean Platelet Volume 11.7 H Neutrophils % 28.3 L Lymphocytes % 48.9 Monocytes % 21.2 H Eosinophils % 0.7 Basophils % 0.7 Nucleated Red Blood Cells % 0.0 Neutrophils # 1.2 L Lymphocytes # 2.0 Monocytes # 0.9 Eosinophils # 0.0 Basophils # 0.0 Nucleated Red Blood Cells # 0.0 Sodium Level 143 Potassium Level 3.1 L Chloride Level 104 Carbon Dioxide Level 30 Anion Gap 12 Blood Urea Nitrogen 14 Creatinine 0.75 Glucose Level 82 Calcium Level 8.3 L Medications Medications Current Medications Ondansetron HCl (Zofran Inj) 4 mg Q6H PRN IV NAUSEA AND/OR VOMITING Last administered on 10/06/16 09:46; Admin Dose 4 MG; Start 10/06/16 at 00:30 Pantoprazole (Protonix Iv) 40 mg DAILY@06 IV Last administered on 10/14/16 05: 33; Admin Dose 40 MG; Start 10/06/16 at 06:00 Lorazepam (Ativan) 1 mg Q6H PRN IV AGITATION/ANXIETY Last administered on 22:05; Admin Dose 1 MG; Start 10/06/16 at 03:00 Morphine Sulfate (morphine) 2 mg Q4H PRN IV PAIN LEVEL 6-10 Last administered on 10/14/16 14:18; Admin Dose 2 MG; Start 10/06/16 at 05:30 Lactulose 20 gm 20 gm Q8 PO Last administered on 10/14/16 14:35; Admin Dose 20 GM; Start 10/08/16 at 14:30 Ceftriaxone Sodium (Rocephin) 50 ml @ 100 mls/hr Q24H IVPB Last administered on 10/13/16 18:11; Admin Dose 100 MLS/HR; Start 10/08/16 at 17:02 Thiamine HCl (Vitamin B1) 100 mg DAILY PO Last administered on 10/14/16 09:14 ; Admin Dose 100 MG; Start 10/11/16 at 09:00; Stop 10/17/16 at 08:59 Multivit/Ca Carb/ B Cmplx/FA/Prenat (Cadence-Chris) 1 tab DAILY PO Last administered on 10/14/16 09:13; Admin Dose 1 TAB; Start 10/11/16 at 09:00 Folic Acid (Folic Acid) 1 mg DAILY PO Last administered on 10/14/16 09:14; Admin Dose 1 MG; Start 10/11/16 at 09:00 Spironolactone (Aldactone) 100 mg BID PO Last administered on 10/14/16 09:13; Admin Dose 100 MG; Start 10/12/16 at 21:00 Midodrine (Proamatine) 5 mg TID@,,17 NGT Last administered on 10/14/16 14: 36; Admin Dose 5 MG; Start 10/13/16 at 09:00 BEATA BRASWELL NP Oct 14, 2016 15:25
[2016-10-14] MEDS: CEFTRIAXONE 1 GM/50 ML (PMX) 50 ML IVPB SCH (16:17)
[2016-10-14] MEDS ORDERED: POTASSIUM CHLORIDE (SR) 20 MEQ TAB PO ONE (22:00)
[2016-10-15] VITALS (11 sets, daily range): BP systolic 98–122; BP diastolic 58–71; PULSE 84–94; RESP 15–19
[2016-10-15] MEDS: PANTOPRAZOLE 40 MG INJ IV SCH (05:15)
[2016-10-15] MEDS: LACTULOSE 30ML CUP PO SCH ×3 (05:15→21:02)
[2016-10-15] MEDS: FUROSEMIDE 40 MG INJ IV SCH ×2 (05:16→18:50)
[2016-10-15] MEDS: morphine 2 MG INJ IV PRN ×4 (05:19→23:05)
--- NOTE | 2016-10-15 08:04 | CONS ---
Date/Time of Note Date/Time of Note DATE: 10/15/16 TIME: 07:51 Assessment/Plan Assessment/Plan Additional Assessment/Plan End-stage liver disease with cirrhosis, thrombocytopenia, anemia, malnutrition Past medical history of hospitalizations for the above Had a long conversation with patient. I do not think she understands the severity of her current medical problems, for that reason I believe she needs to be admitted to halfway unit with hospice care. I have explained my rationale to her that she may event to her current medical problems are not monitored closely in the future. Have explained the benefits of hospice care and that not all patients will but they certainly will receive a higher level of care close monitoring in the event that they did decompensate. She is a good historian she gives me a clear past medical history but I believe she does not understand she may secondary any complication of end-stage liver disease. At this time she states that she would be willing to go into halfway unit because I think she significantly traumatized by our conversation. She calls herself homeless because she does not have a home and lives with different people including family. Her estimated prognosis is less than a year PPS 20%. Pain and symptom management been addressed primarily secondary to abdominal discomfort secondary to massive ascites. There are no psychological or social issues at this time but patient does not have anyone to speak on her behalf in the event that she decompensates. That will be addressed with her as well her CODE STATUS tomorrow today I believe she is uncomfortable be difficult. She wants to have her ascites drained and states that this was done at [facility]. I do not think that she understands why this cannot be done at this time without addressing her thrombocytopenia which is being done by primary care physicians. Recommend hospice care Recommend halfway unit placement and forever if possible We will addressed CODE STATUS tomorrow Consultation Date/Type/Reason Admit Date/Time Oct 05, 2016 at 23:21 Reason for Consultation This 61-year-old female with a history of end-stage liver disease admitted with increasing abdominal girth and abdominal pain. I am asked to speak to patient concerning ongoing level of care CODE STATUS and goals of care. Patient has had multiple admissions in the past for alcohol-related medical problems. The last time she drank was approximately 1 week ago, she is a non-smoker she states she does not use illicit drugs. She does have a clear understanding of her medical problems but not her prognosis. Constitutional: other (Some shortness of breath), poor po, requiring IVF Eyes: No discharge, No no complaints, No other, No pain, No redness, No visual change ENT: No bleeding, No congestion, No discharge, No dysphagia, No no complaints, No other, No pain, No sore throat Respiratory: other (Some shortness of breath), No cough, No no complaints, No pain, No pleuritic pain, No shortness of breath, No sputum, No wheezing Cardiovascular: no complaints, No chest pain, No edema, No lightheadedness, No orthopenea, No other, No palpitations, No paroxysmal nocturnal dyspnea Gastrointestinal: other (Significant abdominal distention), pain (Diffuse abdominal pain) Genitourinary: no complaints Neurologic: no complaints Psychological: anxiety, nl mood/affect, no complaints Family History Significant Family History: no pertinent family hx, other (Abdominohysterectomy ) Social History Alcohol Use: heavy (Abstinent at present) Smoking Status: Former smoker Drug Use: none, marijuana Exam/Review of Systems Vital Signs Vitals Vital Signs Date Time Temp Pulse Resp B/P Pulse Ox O2 Delivery O2 Flow Rate FiO2 10/15/16 04:06 94 10/15/16 04:00 99.1 15 105/69 97 10/14/16 23:27 Room Air 10/14/16 22:00 2.0 Intake and Output 10/14/16 10/14/16 10/15/16 15:00 23:00 07:00 Intake Total 350 ml 200 ml Output Total 150 ml Balance 350 ml 50 ml Exam Constitutional: alert, oriented, well developed Gastrointestinal: ascites, distended, firm Results Result Diagram: 10/14/16 0800 10/14/16 0800 Results 24 hrs Laboratory Tests Test 10/14/16 08:00 White Blood Count 4.2 L Red Blood Count 2.60 L Hemoglobin 8.5 L Hematocrit 25.2 L Mean Corpuscular Volume 96.9 Mean Corpuscular Hemoglobin 32.7 Mean Corpuscular Hemoglobin Concent 33.7 Red Cell Distribution Width 16.5 H Platelet Count 33 L Mean Platelet Volume 11.7 H Neutrophils % 28.3 L Lymphocytes % 48.9 Monocytes % 21.2 H Eosinophils % 0.7 Basophils % 0.7 Nucleated Red Blood Cells % 0.0 Neutrophils # 1.2 L Lymphocytes # 2.0 Monocytes # 0.9 Eosinophils # 0.0 Basophils # 0.0 Nucleated Red Blood Cells # 0.0 Sodium Level 143 Potassium Level 3.1 L Chloride Level 104 Carbon Dioxide Level 30 Anion Gap 12 Blood Urea Nitrogen 14 Creatinine 0.75 Glucose Level 82 Calcium Level 8.3 L Medications Medications Current Medications Ondansetron HCl (Zofran Inj) 4 mg Q6H PRN IV NAUSEA AND/OR VOMITING Last administered on 10/06/16 09:46; Admin Dose 4 MG; Start 10/06/16 at 00:30 Pantoprazole (Protonix Iv) 40 mg DAILY@06 IV Last administered on 10/15/16 05: 15; Admin Dose 40 MG; Start 10/06/16 at 06:00 Lorazepam (Ativan) 1 mg Q6H PRN IV AGITATION/ANXIETY Last administered on 22:05; Admin Dose 1 MG; Start 10/06/16 at 03:00 Morphine Sulfate (morphine) 2 mg Q4H PRN IV PAIN LEVEL 6-10 Last administered on 10/15/16 05:19; Admin Dose 2 MG; Start 10/06/16 at 05:30 Lactulose 20 gm 20 gm Q8 PO Last administered on 10/15/16 05:15; Admin Dose 20 GM; Start 10/08/16 at 14:30 Ceftriaxone Sodium (Rocephin) 50 ml @ 100 mls/hr Q24H IVPB Last administered on 10/14/16 16:17; Admin Dose 100 MLS/HR; Start 10/08/16 at 17:02 Thiamine HCl (Vitamin B1) 100 mg DAILY PO Last administered on 10/14/16 09:14 ; Admin Dose 100 MG; Start 10/11/16 at 09:00; Stop 10/17/16 at 08:59 Multivit/Ca Carb/ B Cmplx/FA/Prenat (Cadence-Chris) 1 tab DAILY PO Last administered on 10/14/16 09:13; Admin Dose 1 TAB; Start 10/11/16 at 09:00 Folic Acid (Folic Acid) 1 mg DAILY PO Last administered on 10/14/16 09:14; Admin Dose 1 MG; Start 10/11/16 at 09:00 Spironolactone (Aldactone) 100 mg BID PO Last administered on 10/14/16 21:20; Admin Dose 100 MG; Start 10/12/16 at 21:00 Midodrine (Proamatine) 5 mg TID@,, NGT Last administered on 10/14/16 14: 36; Admin Dose 5 MG; Start 10/13/16 at 09:00 ENA SMITH Oct 15, 2016 08:01
[2016-10-15 08:34] LABS: ADD SCAN DIFF NO
[2016-10-15 08:44] LABS: ABNORMAL IP MESSAGE 1; BASOPHILS % 0.6 % (0.0-2.0); EOSINOPHILS % 0.6 % (0.0-7.0); HEMATOCRIT 26.7 % (37.0-47.0); HEMOGLOBIN 9.3 g/dl (12.0-16.0); LYMPHOCYTES # 1.8 10^3/ul (0.8-2.9); MEAN CORPUSCULAR HEMOGLOBIN 33.5 pg (29.0-33.0); MEAN CORPUSCULAR HGB CONC 34.8 g/dl (32.0-37.0); MEAN PLATELET VOLUME 12.9 fl (7.4-10.4); MONOCYTE # 0.9 10^3/ul (0.3-0.9); MONOCYTES % 18.9 % (0.0-11.0); NEUTROPHIL # 1.9 10^3/ul (1.6-7.5); NEUTROPHILS % 40.5 % (39.0-77.0); PLATELET COUNT 37 10^3/UL (140-415); RED BLOOD COUNT 2.78 10^6/ul (4.20-5.40); RED CELL DISTRIBUTION WIDTH 16.2 % (11.5-14.5); WHITE BLOOD COUNT 4.7 10^3/ul (4.8-10.8)
[2016-10-15] MEDS: THIAMINE 100 MG TAB PO SCH (09:12)
[2016-10-15] MEDS: MULTIVIT/CA CARB/B CMPLX/FA TAB PO SCH (09:12)
[2016-10-15] MEDS: FOLIC ACID 1 MG TAB PO SCH (09:12)
[2016-10-15 09:13] LABS: CREATININE 0.68 mg/dl (0.44-1.00); POTASSIUM 3.6 mmol/L (3.5-5.1)
[2016-10-15] MEDS: MIDODRINE 5 MG TAB NGT SCH ×3 (09:13→18:49)
[2016-10-15] MEDS: SPIRONOLACTONE 50 MG TAB PO SCH ×2 (09:13→21:03)
--- NOTE | 2016-10-15 11:42 | PN ---
Date/Time of Note Date/Time of Note DATE: 10/15/16 TIME: 11:38 Assessment/Plan VTE Prophylaxis VTE Prophylaxis Intervention: SCD's Lines/Catheters IV C[facility] Type (from [facility] Saline Lock Urinary Cath still in place: No Assessment/Plan Chief Complaint/Hosp Course 1. 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 --Attempt ultrasound-guided paracentesis along with platelet transfusion today. -Continue medical management with diuretics, Aldactone and sodium restricted diet. -GI evaluation appreciated and patient has been started on Aldactone and midodrine -Consider palliative care medicine consult 2. Pancytopenia/coagulopathy/transaminitis with hyperbilirubinemia secondary to #1. -Treatment as per above. No bleeding episodes. No further drop in platelets. Will monitor. 3. Hepatic encephalopathy with hyperammonemia secondary to #1. Improved. -Continue lactulose. Will continue to trend level. 4. Alcohol abuse. Cessation advised DVT prophylaxis. SCDs Gastrointestinal prophylaxis. Proton pump inhibitors. Disposition/plan: Patient with no significant improvement in her ascites diabetes and persistent thrombocytopenia preclude her from paracentesis. Currently there is no emergent indication for TIPS procedure, also [facility] does not offer it at this time. Plan to send patient to custodial facility. Palliative care medicine to discuss CODE STATUS today and hospice referral if patient agrees. For now, we will transfer the patient to medical surgical room. Case discussed with Dr. Rivers. Problems: Subjective 24 Hr Interval Summary Free Text/Dictation Patient with persistent abdominal distention. Poor appetite. No nausea, vomiting or other discomfort. Exam/Review of Systems Vital Signs Vitals Vital Signs Date Time Temp Pulse Resp B/P Pulse Ox O2 Delivery O2 Flow Rate FiO2 10/15/16 08:30 92 10/15/16 08:08 98.5 16 108/69 91 10/14/16 23:27 Room Air 10/14/16 22:00 2.0 Intake and Output 10/14/16 10/14/16 10/15/16 15:00 23:00 07:00 Intake Total 350 ml 200 ml Output Total 150 ml Balance 350 ml 50 ml Exam General: Frail looking female, not in any acute distress . HEENT: Normocephalic, Atraumatic, No laceration or hematoma; Eyes: PEERL, Conjunctiva clear, Anicteric sclera Neck: Supple without any lymphadenopathy, nontender, no JVD, no carotid bruits, trachea midline, no thyromegaly Cardiac: S1, S2 auscultated, regular rhythm and rate, no mumurs or gallop Pulmonary: Normal respiratory effort. Chest clear to auscultation bilaterally, no adventitious breath sounds GI: Abdomen very distended to inspection. no masses, no rebound tenderness or guarding. Bowel sounds active on all four quadrants Genitourinary: Deferred Extremities: No cyanosis, clubbing, or edema. Pulses [2+] bilaterally. Full ROM on all four extremities. No focal weakness appreciated. Neurologic: Al/Ox2. disoriented to time and situation. Affect withdrawn, intact sensation. Skin: Clean,dry, and intact. No ecchymosis, no rashes, or lesions Results Result Diagram: 10/15/1671310/15/16 0714 Results 24 hrs Laboratory Tests Test 10/15/16 07:14 White Blood Count 4.7 L Red Blood Count 2.78 L Hemoglobin 9.3 L Hematocrit 26.7 L Mean Corpuscular Volume 96.0 Mean Corpuscular Hemoglobin 33.5 H Mean Corpuscular Hemoglobin Concent 34.8 Red Cell Distribution Width 16.2 H Platelet Count 37 L Mean Platelet Volume 12.9 H Neutrophils % 40.5 Lymphocytes % 39.0 Monocytes % 18.9 H Eosinophils % 0.6 Basophils % 0.6 Nucleated Red Blood Cells % 0.0 Neutrophils # 1.9 Lymphocytes # 1.8 Monocytes # 0.9 Eosinophils # 0.0 Basophils # 0.0 Nucleated Red Blood Cells # 0.0 Sodium Level 142 Potassium Level 3.6 Chloride Level 101 Carbon Dioxide Level 29 Anion Gap 16 Blood Urea Nitrogen 14 Creatinine 0.68 Glucose Level 92 Calcium Level 9.0 Medications Medications Current Medications Ondansetron HCl (Zofran Inj) 4 mg Q6H PRN IV NAUSEA AND/OR VOMITING Last administered on 10/06/16 09:46; Admin Dose 4 MG; Start 10/06/16 at 00:30 Pantoprazole (Protonix Iv) 40 mg DAILY@06 IV Last administered on 10/15/16 05: 15; Admin Dose 40 MG; Start 10/06/16 at 06:00 Lorazepam (Ativan) 1 mg Q6H PRN IV AGITATION/ANXIETY Last administered on 22:05; Admin Dose 1 MG; Start 10/06/16 at 03:00 Morphine Sulfate (morphine) 2 mg Q4H PRN IV PAIN LEVEL 6-10 Last administered on 10/15/16 05:19; Admin Dose 2 MG; Start 10/06/16 at 05:30 Lactulose 20 gm 20 gm Q8 PO Last administered on 10/15/16 05:15; Admin Dose 20 GM; Start 10/08/16 at 14:30 Ceftriaxone Sodium (Rocephin) 50 ml @ 100 mls/hr Q24H IVPB Last administered on 10/14/16 16:17; Admin Dose 100 MLS/HR; Start 10/08/16 at 17:02 Thiamine HCl (Vitamin B1) 100 mg DAILY PO Last administered on 10/15/16 09:12 ; Admin Dose 100 MG; Start 10/11/16 at 09:00; Stop 10/17/16 at 08:59 Multivit/Ca Carb/ B Cmplx/FA/Prenat (Cadence-Chris) 1 tab DAILY PO Last administered on 10/15/16 09:12; Admin Dose 1 TAB; Start 10/11/16 at 09:00 Folic Acid (Folic Acid) 1 mg DAILY PO Last administered on 10/15/16 09:12; Admin Dose 1 MG; Start 10/11/16 at 09:00 Spironolactone (Aldactone) 100 mg BID PO Last administered on 10/15/16 09:13; Admin Dose 100 MG; Start 10/12/16 at 21:00 Midodrine (Proamatine) 5 mg TID@,,17 NGT Last administered on 10/15/16 09: 13; Admin Dose 5 MG; Start 10/13/16 at 09:00 FRIDA NORMAN NP Oct 15, 2016 11:42
[2016-10-15] MEDS: ONDANSETRON 4 MG INJ IV PRN (14:26)
--- NOTE | 2016-10-15 16:34 | PN ---
Date/Time of Note Date/Time of Note DATE: 10/15/16 TIME: 16:32 Assessment/Plan VTE Prophylaxis VTE Prophylaxis Intervention: SCD's Lines/Catheters IV Catheter Type (from [facility]): Saline Lock Urinary Cath still in place: No Assessment/Plan Assessment/Plan Assessment: * Refractory ascites * Severe thrombocytopenia precluding paracenteses * End-stage alcoholic liver disease * Massive ascites/refractory * Coagulopathy * Thrombocytopenia * Mild portosystemic encephalopathy * Hypersplenism * Alcohol abuse * History of hypertension Plan: * Strict 2 g sodium and 1500 cc fluid restriction * continue present management * Consider holding beta blockers to improve renal perfusion * If no improvement the patient should be considered for TIPSS unfortunately no longer available at [facility] * case discussed with DR Kiran * Further orders will depend on clinical course Subjective 24 Hr Interval Summary Free Text/Dictation * course reviewed * No untoward events overnight Exam/Review of Systems Vital Signs Vitals Vital Signs Date Time Temp Pulse Resp B/P Pulse Ox O2 Delivery O2 Flow Rate FiO2 10/15/16 16:11 84 10/15/16 15:49 98.4 16 122/71 96 10/14/16 23:27 Room Air 10/14/16 22:00 2.0 Intake and Output 10/14/16 10/14/16 10/15/16 15:00 23:00 07:00 Intake Total 350 ml 200 ml Output Total 150 ml Balance 350 ml 50 ml Exam Constitutional: alert, oriented Psych: no complaints Head: normocephalic Eyes: nl conjunctiva Neck: non-tender, supple Respiratory: clear to auscultation, normal air movement Cardiovascular: nl pulses, regular rate and rhythm Gastrointestinal: nl liver, spleen, non-tender, soft Musculoskeletal: nl extremities to inspection, nl gait and stance Extremities: normal pulses Neurological: nl speech, nl strength Results Result Diagram: 10/15/1614 10/15/1614 Results 24 hrs Laboratory Tests Test 10/15/16 07:14 White Blood Count 4.7 L Red Blood Count 2.78 L Hemoglobin 9.3 L Hematocrit 26.7 L Mean Corpuscular Volume 96.0 Mean Corpuscular Hemoglobin 33.5 H Mean Corpuscular Hemoglobin Concent 34.8 Red Cell Distribution Width 16.2 H Platelet Count 37 L Mean Platelet Volume 12.9 H Neutrophils % 40.5 Lymphocytes % 39.0 Monocytes % 18.9 H Eosinophils % 0.6 Basophils % 0.6 Nucleated Red Blood Cells % 0.0 Neutrophils # 1.9 Lymphocytes # 1.8 Monocytes # 0.9 Eosinophils # 0.0 Basophils # 0.0 Nucleated Red Blood Cells # 0.0 Sodium Level 142 Potassium Level 3.6 Chloride Level 101 Carbon Dioxide Level 29 Anion Gap 16 Blood Urea Nitrogen 14 Creatinine 0.68 Glucose Level 92 Calcium Level 9.0 Medications Medications Current Medications Ondansetron HCl (Zofran Inj) 4 mg Q6H PRN IV NAUSEA AND/OR VOMITING Last administered on 10/15/16 14:26; Admin Dose 4 MG; Start 10/06/16 at 00:30 Pantoprazole (Protonix Iv) 40 mg DAILY@06 IV Last administered on 10/15/16 05: 15; Admin Dose 40 MG; Start 10/06/16 at 06:00 Lorazepam (Ativan) 1 mg Q6H PRN IV AGITATION/ANXIETY Last administered on 22:05; Admin Dose 1 MG; Start 10/06/16 at 03:00 Morphine Sulfate (morphine) 2 mg Q4H PRN IV PAIN LEVEL 6-10 Last administered on 10/15/16 05:19; Admin Dose 2 MG; Start 10/06/16 at 05:30 Lactulose 20 gm 20 gm Q8 PO Last administered on 10/15/16 13:20; Admin Dose 20 GM; Start 10/08/16 at 14:30 Ceftriaxone Sodium (Rocephin) 50 ml @ 100 mls/hr Q24H IVPB Last administered on 10/14/16 16:17; Admin Dose 100 MLS/HR; Start 10/08/16 at 17:02 Thiamine HCl (Vitamin B1) 100 mg DAILY PO Last administered on 10/15/16 09:12 ; Admin Dose 100 MG; Start 10/11/16 at 09:00; Stop 10/17/16 at 08:59 Multivit/Ca Carb/ B Cmplx/FA/Prenat (Cadence-Chris) 1 tab DAILY PO Last administered on 10/15/16 09:12; Admin Dose 1 TAB; Start 10/11/16 at 09:00 Folic Acid (Folic Acid) 1 mg DAILY PO Last administered on 7/20/17at 09:12; Admin Dose 1 MG; Start 10/11/16 at 09:00 Spironolactone (Aldactone) 100 mg BID PO Last administered on 10/15/16 09:13; Admin Dose 100 MG; Start 10/12/16 at 21:00 Midodrine (Proamatine) 5 mg TID@,, NGT Last administered on 10/15/16 13: 20; Admin Dose 5 MG; Start 10/13/16 at 09:00 BEATA BRASWELL NP Oct 15, 2016 16:34
[2016-10-15] MEDS ORDERED: LIDOCAINE 1% (MPF) 5 ML VIAL ONE (18:14)
[2016-10-15] MEDS: CEFTRIAXONE 1 GM/50 ML (PMX) 50 ML IVPB SCH (18:49)
[2016-10-16 02:31] VITALS: BP 96/57; RESP 16
[2016-10-16] MEDS: PANTOPRAZOLE (EC) 40 MG TAB PO SCH (05:17)
[2016-10-16] MEDS: LACTULOSE 30ML CUP PO SCH ×3 (05:17→21:29)
[2016-10-16] MEDS: FUROSEMIDE 40 MG INJ IV SCH ×2 (06:00→18:13)
[2016-10-16 07:44] VITALS: BP 98/55; RESP 18
--- NOTE | 2016-10-16 08:10 | RADRPT ---
PROCEDURE: Ultrasound guided paracentesis. CLINICAL INDICATION: Ascites and shortness of breath. COMPARISON: No prior studies are available for comparison. TECHNIQUE: The risks, benefits, and alternatives were explained to the patient and/or the patient's family, inc luding but not limited to bleeding, infection, pain, visceral or vascular damage, shock, and . The patient and/or the patient's family understood the risks and the alternatives and wished to pro ceed with the procedure. Informed written consent was obtained. A procedural time out was performed . The patient's name, date of , and procedure to be performed were verified. Utilizing ultrasound guidance, optimal location for entry to the peritoneal cavity was ascertained. The overlying skin was prepped and draped in the usual sterile fashion. Approximately 10 ml of 1% Xylocaine was injected locally for pain control. Using ultrasound guidance, an 8 [place] catheter wa s introduced into the peritoneal cavity in the right lower quadrant without difficulty. FINDINGS: Initial images demonstrate ascites. Approximately 6.9 liters of serous fluid was aspirated and disc arded. The patient tolerated the procedure well without complication. IMPRESSION: 1. Successful ultrasound-guided paracentesis. RPTAT: QQ .Brennon Best MD, Date Time Electronically viewed and signed by .Brennon Best MD, on 10/16/2016 08:10 .R/
[2016-10-16] MEDS: FOLIC ACID 1 MG TAB PO SCH (08:11)
[2016-10-16] MEDS: MULTIVIT/CA CARB/B CMPLX/FA TAB PO SCH (08:11)
[2016-10-16] MEDS: SPIRONOLACTONE 50 MG TAB PO SCH ×2 (08:11→21:30)
[2016-10-16] MEDS: THIAMINE 100 MG TAB PO SCH (08:11)
[2016-10-16] MEDS: MIDODRINE 5 MG TAB NGT SCH ×3 (08:13→18:10)
--- NOTE | 2016-10-16 09:18 | PN ---
Date/Time of Note Date/Time of Note DATE: 10/16/16 TIME: 09:14 Assessment/Plan VTE Prophylaxis VTE Prophylaxis Intervention: SCD's Lines/Catheters IV [facility] (from [facility]): Saline Lock Urinary Cath still in place: No Assessment/Plan Assessment/Plan Refractory ascites * End-stage alcoholic liver disease * Massive ascites/refractory * Coagulopathy * Thrombocytopenia * Mild portosystemic encephalopathy * Hypersplenism * Alcohol abuse * History of hypertension Plan: * Strict 2 g sodium and 1500 cc fluid restriction * continue present management * If no improvement the patient should be considered for TIPSS unfortunately no longer available at [facility] * case discussed with DR Kiran * Further orders will depend on clinical course Subjective 24 Hr Interval Summary Free Text/Dictation * Course reviewed with RN * patient seen and examined * S/P paracentesis yesterday 6.1 l taken out * no untoward events overnight Exam/Review of Systems Vital Signs Vitals Vital Signs Date Time Temp Pulse Resp B/P Pulse Ox O2 Delivery O2 Flow Rate FiO2 10/16/16 08:02 Nasal Cannula 2.0 10/16/16 07:44 99.0 91 18 98/55 97 Intake and Output 10/15/16 10/15/16 10/16/16 15:00 23:00 07:00 Intake Total 998 ml 500 ml Balance 998 ml 500 ml Exam Constitutional: alert, oriented Head: normocephalic Eyes: icteric Neck: non-tender, supple Respiratory: clear to auscultation, normal air movement Cardiovascular: nl pulses, regular rate and rhythm Gastrointestinal: ascites, distended, non-tender, soft, No rebound or guarding Musculoskeletal: nl extremities to inspection, nl gait and stance Extremities: normal pulses Neurological: nl speech, nl strength Skin: nl turgor, No rash or lesions Lymph: nl lymph nodes Results Result Diagram: 10/15/1614 10/15/16713 Results 24 hrs Laboratory Tests Test 10/16/16 06:03 Lab Scanned Report BLOOD TRANSFUSION Medications Medications Current Medications Ondansetron HCl (Zofran Inj) 4 mg Q6H PRN IV NAUSEA AND/OR VOMITING Last administered on 10/15/16t 14:26; Admin Dose 4 MG; Start 10/06/16 at 00:30 Lorazepam (Ativan) 1 mg Q6H PRN IV AGITATION/ANXIETY Last administered on 22:05; Admin Dose 1 MG; Start 10/06/16 at 03:00 Morphine Sulfate (morphine) 2 mg Q4H PRN IV PAIN LEVEL 6-10 Last administered on 10/15/16 23:05; Admin Dose 2 MG; Start 10/06/16 at 05:30 Lactulose 20 gm 20 gm Q8 PO Last administered on 10/16/16 05:17; Admin Dose 20 GM; Start 10/08/16 at 14:30 Ceftriaxone Sodium (Rocephin) 50 ml @ 100 mls/hr Q24H IVPB Last administered on 10/15/16 18:49; Admin Dose 100 MLS/HR; Start 10/08/16 at 17:02 Thiamine HCl (Vitamin B1) 100 mg DAILY PO Last administered on 10/16/16 08:11 ; Admin Dose 100 MG; Start 10/11/16 at 09:00; Stop 10/17/16 at 08:59 Multivit/Ca Carb/ B Cmplx/FA/Prenat (Cadence-Chris) 1 tab DAILY PO Last administered on 10/16/16 08:11; Admin Dose 1 TAB; Start 10/11/16 at 09:00 Folic Acid (Folic Acid) 1 mg DAILY PO Last administered on 10/16/16 08:11; Admin Dose 1 MG; Start 10/11/16 at 09:00 Spironolactone (Aldactone) 100 mg BID PO Last administered on 10/16/16 08:11; Admin Dose 100 MG; Start 10/12/16 at 21:00 Midodrine (Proamatine) 5 mg TID@, NGT Last administered on 10/16/16 08: 13; Admin Dose 5 MG; Start 10/13/16 at 09:00 Pantoprazole (Protonix Tab) 40 mg DAILY@06 PO Last administered on 10/16/16 05 :17; Admin Dose 40 MG; Start 10/16/16 at 06:00 BEATA BRASWELL NP Oct 16, 2016 09:17
--- NOTE | 2016-10-16 09:52 | PN ---
Date/Time of Note Date/Time of Note DATE: 10/16/16 TIME: 09:46 Assessment/Plan VTE Prophylaxis VTE Prophylaxis Intervention: SCD's Lines/Catheters IV [facility] Type (from [facility]): Saline Lock Urinary Cath still in place: No Assessment/Plan Chief Complaint/Hosp Course 1. 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 Symptoms improved significantly. --Status post successful paracentesis on 10/15/2016 with 6.9 L output. -Continue medical management with diuretics, Aldactone and sodium restricted diet. 2. Pancytopenia/coagulopathy/transaminitis with hyperbilirubinemia secondary to #1. Now stable. -Treatment as per above. No bleeding episodes. Will monitor. 3. Hepatic encephalopathy with hyperammonemia secondary to #1. Resolved -Continue lactulose. Will continue to trend level. 4. Alcohol abuse. Cessation advised DVT prophylaxis. SCDs Gastrointestinal prophylaxis. Proton pump inhibitors. Disposition/plan: Today patient is back to her baseline neuro status with significant improvement in her ascites status. Patient wanted to go home and is not ready for [facility] facility at this time. As per physical therapy evaluation patient is deemed stable for discharge home with a front wheeled walker. Patient reported that her daughter will be available at home and pick her up tomorrow and she will can go home. currently there is no emergent indication for TIPS procedure, also [facility] does not offer it at this time. So it is reasonable to send her home with outpatient primary care follow- up. I also discussed with the patient that she might be requiring a [facility] home placement in the long run when her end-stage liver cirrhosis affect her activities of daily living. Patient verbalized understanding. Discharge planning: Likely discharge home with patient's daughter tomorrow home with front wheel walker. Case discussed with Dr. Rivers. Problems: Subjective 24 Hr Interval Summary Free Text/Dictation Patient lying in bed comfortably. Status post paracentesis yesterday with removal of 6.9 L fluids. Patient feels much improvement in abdominal discomfort. Exam/Review of Systems Vital Signs Vitals Vital Signs Date Time Temp Pulse Resp B/P Pulse Ox O2 Delivery O2 Flow Rate FiO2 10/16/16 08:02 Nasal Cannula 2.0 10/16/16 07:44 99.0 91 18 98/55 97 Intake and Output 10/15/16 10/15/16 10/16/16 15:00 23:00 07:00 Intake Total 998 ml 500 ml Balance 998 ml 500 ml Exam General: Frail looking female, not in any acute distress . HEENT: Normocephalic, Atraumatic, No laceration or hematoma; Eyes: PEERL, Conjunctiva clear, Anicteric sclera Neck: Supple without any lymphadenopathy, nontender, no JVD, no carotid bruits, trachea midline, no thyromegaly Cardiac: S1, S2 auscultated, regular rhythm and rate, no mumurs or gallop Pulmonary: Normal respiratory effort. Chest clear to auscultation bilaterally, no adventitious breath sounds GI: Abdomen soft to inspection. no masses, no rebound tenderness or guarding. Bowel sounds active on all four quadrants Genitourinary: Deferred Extremities: No cyanosis, clubbing, or edema. Pulses [2+] bilaterally. Full ROM on all four extremities. No focal weakness appreciated. Neurologic: Today patient is alert oriented 4. Affect appropriate, intact sensation. Skin: Clean,dry, and intact. No ecchymosis, no rashes, or lesions Results Result Diagram: 10/15/16 0714 10/15/16 0714 Results 24 hrs Laboratory Tests Test 10/16/16 06:03 Lab Scanned Report BLOOD TRANSFUSION Medications Medications Current Medications Ondansetron HCl (Zofran Inj) 4 mg Q6H PRN IV NAUSEA AND/OR VOMITING Last administered on 10/15/16 14:26; Admin Dose 4 MG; Start 10/06/16 at 00:30 Lorazepam (Ativan) 1 mg Q6H PRN IV AGITATION/ANXIETY Last administered on 22:05; Admin Dose 1 MG; Start 10/06/16 at 03:00 Morphine Sulfate (morphine) 2 mg Q4H PRN IV PAIN LEVEL 6-10 Last administered on 10/15/16 23:05; Admin Dose 2 MG; Start 10/06/16 at 05:30 Lactulose 20 gm 20 gm Q8 PO Last administered on 10/16/16 05:17; Admin Dose 20 GM; Start 10/08/16 at 14:30 Ceftriaxone Sodium (Rocephin) 50 ml @ 100 mls/hr Q24H IVPB Last administered on 10/15/16 18:49; Admin Dose 100 MLS/HR; Start 10/08/16 at 17:02 Thiamine HCl (Vitamin B1) 100 mg DAILY PO Last administered on 10/16/16 08:11 ; Admin Dose 100 MG; Start 10/11/16 at 09:00; Stop 10/17/16 at 08:59 Multivit/Ca Carb/ B Cmplx/FA/Prenat (Cadence-Chris) 1 tab DAILY PO Last administered on 10/16/16 08:11; Admin Dose 1 TAB; Start 10/11/16 at 09:00 Folic Acid (Folic Acid) 1 mg DAILY PO Last administered on 10/16/16 08:11; Admin Dose 1 MG; Start 10/11/16 at 09:00 Spironolactone (Aldactone) 100 mg BID PO Last administered on 10/16/16 08:11; Admin Dose 100 MG; Start 10/12/16 at 21:00 Midodrine (Proamatine) 5 mg TID@,,17 NGT Last administered on 10/16/16 08: 13; Admin Dose 5 MG; Start 10/13/16 at 09:00 Pantoprazole (Protonix Tab) 40 mg DAILY@06 PO Last administered on 10/16/16 05 :17; Admin Dose 40 MG; Start 10/16/16 at 06:00 FRIDA NORMAN NP Oct 16, 2016 09:51
[2016-10-16] MEDS: morphine 2 MG INJ IV PRN ×2 (13:41→23:38)
[2016-10-16] MEDS: ONDANSETRON 4 MG INJ IV PRN (13:59)
[2016-10-16 14:03] VITALS: BP 97/55; RESP 18
[2016-10-16] MEDS: CEFTRIAXONE 1 GM/50 ML (PMX) 50 ML IVPB SCH (17:18)
[2016-10-16 19:51] VITALS: BP 101/70; RESP 18
[2016-10-17] VITALS (7 sets, daily range): BP systolic 87–104; BP diastolic 52–73; PULSE 88–90; RESP 16–18
[2016-10-17] MEDS: FUROSEMIDE 40 MG INJ IV SCH ×2 (05:51→09:23)
[2016-10-17] MEDS: PANTOPRAZOLE (EC) 40 MG TAB PO SCH (05:51)
[2016-10-17] MEDS: LACTULOSE 30ML CUP PO SCH ×4 (05:51→23:03)
--- NOTE | 2016-10-17 09:04 | CONS ---
Date/Time of Note Date/Time of Note DATE: 10/17/16 TIME: 09:02 Assessment/Plan Assessment/Plan Additional Assessment/Plan I spoken to patient's primary care provider and I am in agreement that patient could be discharged with follow-up with hospice care at home. Patient has refused snf placement but I believe this is not in her best interest and this would be an unsafe discharge. I will try to convince patient that she needs to be hospitalized and is significant for a period of time until she is improved. From a palliative care standpoint her long-term prognosis is extremely poor her palliative performance scale is 20% especially since she continues to drink alcohol. Consultation Date/Type/Reason Admit Date/Time Oct 05, 2016 at 23:21 Initial Consult Date 10/12/16 Type of Consultation: GI Exam/Review of Systems Vital Signs Vitals Vital Signs Date Time Temp Pulse Resp B/P Pulse Ox O2 Delivery O2 Flow Rate FiO2 10/17/16 07:40 98.9 89 18 87/52 90 10/16/16 19:59 Nasal Cannula 2.0 Intake and Output 10/16/16 10/16/16 10/17/16 15:00 23:00 07:00 Intake Total 770 ml 250 ml Output Total 100 ml Balance 670 ml 250 ml Results Result Diagram: 10/15/1614 10/15/16713 Medications Medications Current Medications Ondansetron HCl (Zofran Inj) 4 mg Q6H PRN IV NAUSEA AND/OR VOMITING Last administered on 10/16/16 13:59; Admin Dose 4 MG; Start 10/06/16 at 00:30 Morphine Sulfate (morphine) 2 mg Q4H PRN IV PAIN LEVEL 6-10 Last administered on 10/16/16 23:38; Admin Dose 2 MG; Start 10/06/16 at 05:30 Lactulose 20 gm 20 gm Q8 PO Last administered on 10/17/16 05:51; Admin Dose 20 GM; Start 10/08/16 at 14:30 Ceftriaxone Sodium (Rocephin) 50 ml @ 100 mls/hr Q24H IVPB Last administered on 10/16/16 17:18; Admin Dose 100 MLS/HR; Start 10/08/16 at 17:02 Multivit/Ca Carb/ B Cmplx/FA/Prenat (Cadence-Chris) 1 tab DAILY PO Last administered on 10/16/16 08:11; Admin Dose 1 TAB; Start 10/11/16 at 09:00 Folic Acid (Folic Acid) 1 mg DAILY PO Last administered on 10/16/16 08:11; Admin Dose 1 MG; Start 10/11/16 at 09:00 Spironolactone (Aldactone) 100 mg BID PO Last administered on 10/16/16 21:30; Admin Dose 100 MG; Start 10/12/16 at 21:00 Midodrine (Proamatine) 5 mg TID@,,17 NGT Last administered on 10/16/16 18: 10; Admin Dose 5 MG; Start 10/13/16 at 09:00 Pantoprazole (Protonix Tab) 40 mg DAILY@06 PO Last administered on 10/17/16 05 :51; Admin Dose 40 MG; Start 10/16/16 at 06:00 Lorazepam (Ativan) 1 mg Q6H PRN PO AGITATION/ANXIETY; Start 10/16/16 at 13:30 ENA SMITH Oct 17, 2016 09:04
[2016-10-17] MEDS: MULTIVIT/CA CARB/B CMPLX/FA TAB PO SCH (09:23)
[2016-10-17] MEDS: SPIRONOLACTONE 50 MG TAB PO SCH ×2 (09:23→20:52)
[2016-10-17] MEDS: MIDODRINE 5 MG TAB NGT SCH ×3 (09:23→17:47)
[2016-10-17] MEDS: FOLIC ACID 1 MG TAB PO SCH (09:24)
--- NOTE | 2016-10-17 09:57 | PN ---
Date/Time of Note Date/Time of Note DATE: 10/17/16 TIME: 09:55 Assessment/Plan VTE Prophylaxis VTE Prophylaxis Intervention: ambulation Lines/Catheters IV Catheter Type (from [facility]): Saline Lock Urinary Cath still in place: No Assessment/Plan Assessment/Plan Assessment/Plan Refractory ascites * End-stage alcoholic liver disease * Massive ascites/refractory * Coagulopathy * Thrombocytopenia * Mild portosystemic encephalopathy * Hypersplenism * Alcohol abuse * History of hypertension Plan: * Strict 2 g sodium and 1500 cc fluid restriction * continue present management * If no improvement the patient should be considered for TIPSS unfortunately no longer available at [facility] * case discussed with DR Kiran * Further orders will depend on clinical course Subjective 24 Hr Interval Summary Free Text/Dictation * Course reviewed with RN * Patient sees and examined * No untoward events overnight Exam/Review of Systems Vital Signs Vitals Vital Signs Date Time Temp Pulse Resp B/P Pulse Ox O2 Delivery O2 Flow Rate FiO2 10/17/16 09:24 90 18 101/73 10/17/16 07:40 98.9 90 10/16/16 19:59 Nasal Cannula 2.0 Intake and Output 10/16/16 10/16/16 10/17/16 15:00 23:00 07:00 Intake Total 770 ml 250 ml Output Total 100 ml Balance 670 ml 250 ml Exam Constitutional: alert, oriented Neck: non-tender, supple Respiratory: clear to auscultation, normal air movement Cardiovascular: nl pulses, regular rate and rhythm Gastrointestinal: ascites, bowel sounds, distended, non-tender, soft, No rebound or guarding Musculoskeletal: nl extremities to inspection, nl gait and stance Neurological: nl speech Skin: nl turgor Results Result Diagram: 10/15/1614 10/15/16713 Medications Medications Current Medications Ondansetron HCl (Zofran Inj) 4 mg Q6H PRN IV NAUSEA AND/OR VOMITING Last administered on 10/16/16 13:59; Admin Dose 4 MG; Start 10/06/16 at 00:30 Morphine Sulfate (morphine) 2 mg Q4H PRN IV PAIN LEVEL 6-10 Last administered on 10/16/16 23:38; Admin Dose 2 MG; Start 10/06/16 at 05:30 Lactulose 20 gm 20 gm Q8 PO Last administered on 10/17/16 05:51; Admin Dose 20 GM; Start 10/08/16 at 14:30 Ceftriaxone Sodium (Rocephin) 50 ml @ 100 mls/hr Q24H IVPB Last administered on 10/16/16 17:18; Admin Dose 100 MLS/HR; Start 10/08/16 at 17:02 Multivit/Ca Carb/ B Cmplx/FA/Prenat (Cadence-Chris) 1 tab DAILY PO Last administered on 10/17/16 09:23; Admin Dose 1 TAB; Start 10/11/16 at 09:00 Folic Acid (Folic Acid) 1 mg DAILY PO Last administered on 10/17/16 09:24; Admin Dose 1 MG; Start 10/11/16 at 09:00 Spironolactone (Aldactone) 100 mg BID PO Last administered on 10/17/16 09:23; Admin Dose 100 MG; Start 10/12/16 at 21:00 Midodrine (Proamatine) 5 mg TID@,,17 NGT Last administered on 10/17/16 09: 23; Admin Dose 5 MG; Start 10/13/16 at 09:00 Pantoprazole (Protonix Tab) 40 mg DAILY@06 PO Last administered on 10/17/16 05 :51; Admin Dose 40 MG; Start 10/16/16 at 06:00 Lorazepam (Ativan) 1 mg Q6H PRN PO AGITATION/ANXIETY; Start 10/16/16 at 13:30 BEATA BRASWELL NP Oct 17, 2016 09:57
--- NOTE | 2016-10-17 14:16 | PN ---
Date/Time of Note Date/Time of Note DATE: 10/17/16 TIME: 14:14 Assessment/Plan VTE Prophylaxis VTE Prophylaxis Intervention: SCD's Lines/Catheters IV C[facility]ter Type (from [facility]): Saline Lock Urinary Cath still in place: No Assessment/Plan Chief Complaint/Hosp Course 1. 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 -Continue medical management with diuretics, Aldactone and sodium restricted diet. 2. Pancytopenia/coagulopathy/transaminitis with hyperbilirubinemia secondary to #1. Now stable. -Treatment as per above. No bleeding episodes. Will monitor. 3. Hepatic encephalopathy with hyperammonemia secondary to #1- Resolved -Continue lactulose. Will continue to trend level. 4. Alcohol abuse. Cessation advised DVT prophylaxis. SCDs Gastrointestinal prophylaxis. Proton pump inhibitors. Disposition/plan: Patient is now stating that she feels unsafe going home and prefers going to a shelter with hospice, will discuss with child welfare caseworker and sr. social media & mobile manager Problems: Subjective 24 Hr Interval Summary Constitutional: no complaints Exam/Review of Systems Vital Signs Vitals Vital Signs Date Time Temp Pulse Resp B/P Pulse Ox O2 Delivery O2 Flow Rate FiO2 10/17/16 09:24 90 18 101/73 10/17/16 07:40 98.9 90 10/16/16 19:59 Nasal Cannula 2.0 Intake and Output 10/16/16 10/16/16 10/17/16 15:00 23:00 07:00 Intake Total 770 ml 250 ml Output Total 100 ml Balance 670 ml 250 ml Exam Constitutional: alert Respiratory: clear to auscultation Cardiovascular: regular rate and rhythm Gastrointestinal: soft, No distended Musculoskeletal: nl extremities to inspection Results Result Diagram: 10/15/16 0714 10/15/16 0714 Medications Medications Current Medications Ondansetron HCl (Zofran Inj) 4 mg Q6H PRN IV NAUSEA AND/OR VOMITING Last administered on 10/16/16 13:59; Admin Dose 4 MG; Start 10/06/16 at 00:30 Morphine Sulfate (morphine) 2 mg Q4H PRN IV PAIN LEVEL 6-10 Last administered on 10/16/16 23:38; Admin Dose 2 MG; Start 10/06/16 at 05:30 Lactulose 20 gm 20 gm Q8 PO Last administered on 10/17/16 05:51; Admin Dose 20 GM; Start 10/08/16 at 14:30 Ceftriaxone Sodium (Rocephin) 50 ml @ 100 mls/hr Q24H IVPB Last administered on 10/16/16 17:18; Admin Dose 100 MLS/HR; Start 10/08/16 at 17:02 Multivit/Ca Carb/ B Cmplx/FA/Prenat (Cadence-Chris) 1 tab DAILY PO Last administered on 10/17/16 09:23; Admin Dose 1 TAB; Start 10/11/16 at 09:00 Folic Acid (Folic Acid) 1 mg DAILY PO Last administered on 10/17/16 09:24; Admin Dose 1 MG; Start 10/11/16 at 09:00 Spironolactone (Aldactone) 100 mg BID PO Last administered on 10/17/16 09:23; Admin Dose 100 MG; Start 10/12/16 at 21:00 Midodrine (Proamatine) 5 mg TID@,,17 NGT Last administered on 10/17/16 09: 23; Admin Dose 5 MG; Start 10/13/16 at 09:00 Pantoprazole (Protonix Tab) 40 mg DAILY@06 PO Last administered on 10/17/16 05 :51; Admin Dose 40 MG; Start 10/16/16 at 06:00 Lorazepam (Ativan) 1 mg Q6H PRN PO AGITATION/ANXIETY; Start 10/16/16 at 13:30 REA BAKER Oct 17, 2016 14:16
[2016-10-17] MEDS: CEFTRIAXONE 1 GM/50 ML (PMX) 50 ML IVPB SCH (17:48)
[2016-10-18 01:34] VITALS: BP 103/67; RESP 18
[2016-10-18] MEDS: FUROSEMIDE 40 MG INJ IV SCH ×3 (05:54→17:59)
[2016-10-18] MEDS: LACTULOSE 30ML CUP PO SCH ×3 (05:54→21:49)
[2016-10-18] MEDS: PANTOPRAZOLE (EC) 40 MG TAB PO SCH (05:54)
[2016-10-18 07:43] VITALS: BP 111/70; RESP 18
[2016-10-18] MEDS: MULTIVIT/CA CARB/B CMPLX/FA TAB PO SCH (08:50)
[2016-10-18] MEDS: SPIRONOLACTONE 50 MG TAB PO SCH ×2 (08:50→20:53)
[2016-10-18] MEDS: MIDODRINE 5 MG TAB NGT SCH ×3 (08:51→17:59)
[2016-10-18] MEDS: FOLIC ACID 1 MG TAB PO SCH (08:55)
--- NOTE | 2016-10-18 11:50 | PN ---
Date/Time of Note Date/Time of Note DATE: 10/18/16 TIME: 11:48 Assessment/Plan VTE Prophylaxis VTE Prophylaxis Intervention: SCD's Lines/Catheters IV [facility]ter Type (from [facility]): Saline Lock Urinary Cath still in place: No Assessment/Plan Assessment/Plan Refractory ascites * End-stage alcoholic liver disease * Massive ascites/refractory * Coagulopathy * Thrombocytopenia * Mild portosystemic encephalopathy * Hypersplenism * Alcohol abuse * History of hypertension Plan: * Strict 2 g sodium and 1500 cc fluid restriction * continue present management * If no improvement the patient should be considered for TIPSS unfortunately no longer available at [facility] * case discussed with DR Kiran * Further orders will depend on clinical course Subjective 24 Hr Interval Summary Free Text/Dictation * Course reviewed with RN * patient seen and examined * No untoward events overnight Exam/Review of Systems Vital Signs Vitals Vital Signs Date Time Temp Pulse Resp B/P Pulse Ox O2 Delivery O2 Flow Rate FiO2 10/18/16 07:43 98.3 80 18 111/70 97 10/17/16 17:00 Room Air 10/16/16 19:59 2.0 Intake and Output 10/17/16 10/17/16 10/18/16 15:00 23:00 07:00 Intake Total 720 ml 240 ml Balance 720 ml 240 ml Exam Constitutional: alert, frail Neck: non-tender, supple Respiratory: clear to auscultation, normal air movement Cardiovascular: nl pulses, regular rate and rhythm Gastrointestinal: ascites, bowel sounds, distended, soft Musculoskeletal: nl extremities to inspection, swelling Extremities: pitting pedal edema Neurological: nl speech Skin: nl turgor, No rash or lesions Lymph: nl lymph nodes Results Result Diagram: 10/15/1671310/15/16713 Medications Medications Current Medications Ondansetron HCl (Zofran Inj) 4 mg Q6H PRN IV NAUSEA AND/OR VOMITING Last administered on 10/16/16 13:59; Admin Dose 4 MG; Start 10/06/16 at 00:30 Morphine Sulfate (morphine) 2 mg Q4H PRN IV PAIN LEVEL 6-10 Last administered on 10/16/16 23:38; Admin Dose 2 MG; Start 10/06/16 at 05:30 Lactulose 20 gm 20 gm Q8 PO Last administered on 10/18/16 05:54; Admin Dose 20 GM; Start 10/08/16 at 14:30 Ceftriaxone Sodium (Rocephin) 50 ml @ 100 mls/hr Q24H IVPB Last administered on 10/17/16 17:48; Admin Dose 100 MLS/HR; Start 10/08/16 at 17:02 Multivit/Ca Carb/ B Cmplx/FA/Prenat (Cadence-Chris) 1 tab DAILY PO Last administered on 10/18/16 08:50; Admin Dose 1 TAB; Start 10/11/16 at 09:00 Folic Acid (Folic Acid) 1 mg DAILY PO Last administered on 10/18/16 08:55; Admin Dose 1 MG; Start 10/11/16 at 09:00 Spironolactone (Aldactone) 100 mg BID PO Last administered on 10/18/16 08:50; Admin Dose 100 MG; Start 10/12/16 at 21:00 Midodrine (Proamatine) 5 mg TID@,,17 NGT Last administered on 10/18/16 08: 51; Admin Dose 5 MG; Start 10/13/16 at 09:00 Pantoprazole (Protonix Tab) 40 mg DAILY@06 PO Last administered on 10/18/16 05 :54; Admin Dose 40 MG; Start 10/16/16 at 06:00 Lorazepam (Ativan) 1 mg Q6H PRN PO AGITATION/ANXIETY; Start 10/16/16 at 13:30 BEATA BRASWELL NP Oct 18, 2016 11:50
[2016-10-18 13:35] VITALS: BP 94/54; RESP 18
[2016-10-18] MEDS: ALBUTEROL/IPRATROPIUM (NEB) 3 ML AMP HHN PRN ×2 (16:45→22:49)
--- NOTE | 2016-10-18 17:48 | PN ---
Date/Time of Note Date/Time of Note DATE: 10/18/16 TIME: 17:47 Assessment/Plan VTE Prophylaxis VTE Prophylaxis Intervention: SCD's Lines/Catheters IV Catheter Type (from [facility]): Saline Lock Urinary Cath still in place: No Assessment/Plan Chief Complaint/Hosp Course 1. 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 -Continue medical management with diuretics, Aldactone and sodium restricted diet, cannot increase diuretic regimen at this time secondary to low blood pressure 2. Pancytopenia/coagulopathy/transaminitis with hyperbilirubinemia secondary to #1. Now stable. -Treatment as per above. No bleeding episodes. Will monitor. 3. Hepatic encephalopathy with hyperammonemia secondary to #1- Resolved -Continue lactulose. Will continue to trend level. 4. Alcohol abuse. Cessation advised DVT prophylaxis. SCDs Gastrointestinal prophylaxis. Proton pump inhibitors. Disposition/plan: Patient is now stating that she feels unsafe going home and prefers going to a intermediate with hospice, field case manager and social media senior associate to please attempt to arrange for hospice at a nursing facility Problems: Subjective 24 Hr Interval Summary Constitutional: no complaints Exam/Review of Systems Vital Signs Vitals Vital Signs Date Time Temp Pulse Resp B/P Pulse Ox O2 Delivery O2 Flow Rate FiO2 10/18/16 16:45 81 18 99 Nasal Cannula 2.0 10/18/16 13:35 98.5 94/54 Intake and Output 10/17/16 10/17/16 10/18/16 15:00 23:00 07:00 Intake Total 720 ml 240 ml Balance 720 ml 240 ml Exam Constitutional: alert Respiratory: clear to auscultation Cardiovascular: regular rate and rhythm Gastrointestinal: distended, soft Musculoskeletal: nl extremities to inspection Results Result Diagram: 10/15/1614 10/15/1614 Medications Medications Current Medications Ondansetron HCl (Zofran Inj) 4 mg Q6H PRN IV NAUSEA AND/OR VOMITING Last administered on 10/16/16 13:59; Admin Dose 4 MG; Start 10/06/16 at 00:30 Morphine Sulfate (morphine) 2 mg Q4H PRN IV PAIN LEVEL 6-10 Last administered on 10/16/16 23:38; Admin Dose 2 MG; Start 10/06/16 at 05:30 Lactulose 20 gm 20 gm Q8 PO Last administered on 10/18/16 05:54; Admin Dose 20 GM; Start 10/08/16 at 14:30 Ceftriaxone Sodium (Rocephin) 50 ml @ 100 mls/hr Q24H IVPB Last administered on 10/17/16 17:48; Admin Dose 100 MLS/HR; Start 10/08/16 at 17:02 Multivit/Ca Carb/ B Cmplx/FA/Prenat (Cadence-Chris) 1 tab DAILY PO Last administered on 10/18/16 08:50; Admin Dose 1 TAB; Start 10/11/16 at 09:00 Folic Acid (Folic Acid) 1 mg DAILY PO Last administered on 10/18/16 08:55; Admin Dose 1 MG; Start 10/11/16 at 09:00 Spironolactone (Aldactone) 100 mg BID PO Last administered on 10/18/16 08:50; Admin Dose 100 MG; Start 10/12/16 at 21:00 Midodrine (Proamatine) 5 mg TID@,,17 NGT Last administered on 10/18/16 14: 50; Admin Dose 5 MG; Start 10/13/16 at 09:00 Pantoprazole (Protonix Tab) 40 mg DAILY@06 PO Last administered on 10/18/16 05 :54; Admin Dose 40 MG; Start 10/16/16 at 06:00 Lorazepam (Ativan) 1 mg Q6H PRN PO AGITATION/ANXIETY; Start 10/16/16 at 13:30 REA BAKER Oct 18, 2016 17:48
[2016-10-18] MEDS: CEFTRIAXONE 1 GM/50 ML (PMX) 50 ML IVPB SCH (17:53)
[2016-10-18 18:00] VITALS: BP 127/81; PULSE 95; RESP 16
[2016-10-18 19:58] VITALS: BP 121/82; RESP 18
[2016-10-19] MEDS: LORAZEPAM 1 MG TAB PO PRN (00:06)
[2016-10-19 02:00] VITALS: BP 94/53; RESP 18
[2016-10-19] MEDS: LACTULOSE 30ML CUP PO SCH ×3 (06:00→22:00)
[2016-10-19] MEDS: FUROSEMIDE 40 MG INJ IV SCH ×3 (06:00→17:59)
[2016-10-19] MEDS: PANTOPRAZOLE (EC) 40 MG TAB PO SCH ×2 (06:00→08:27)
[2016-10-19 07:39] VITALS: BP 99/60; RESP 18
[2016-10-19] MEDS: MULTIVIT/CA CARB/B CMPLX/FA TAB PO SCH (08:28)
[2016-10-19] MEDS: SPIRONOLACTONE 50 MG TAB PO SCH ×2 (08:29→21:00)
[2016-10-19] MEDS: FOLIC ACID 1 MG TAB PO SCH (08:30)
[2016-10-19] MEDS: MIDODRINE 5 MG TAB NGT SCH ×3 (08:32→17:59)
--- NOTE | 2016-10-19 08:46 | PN ---
Date/Time of Note Date/Time of Note DATE: 10/19/16 TIME: 08:37 Assessment/Plan VTE Prophylaxis VTE Prophylaxis Intervention: SCD's Lines/Catheters IV Catheter Type (from [facility]): Saline Lock Urinary Cath still in place: No Assessment/Plan Chief Complaint/Hosp Course 1. 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 Symptoms improved significantly. --Status post successful paracentesis on 10/15/2016 with 6.9 L output. -Continue medical management with diuretics, Aldactone and sodium restricted diet. 2. Pancytopenia/coagulopathy/transaminitis with hyperbilirubinemia secondary to #1. Now stable. -Treatment as per above. No bleeding episodes. Will monitor. 3. Hepatic encephalopathy with hyperammonemia secondary to #1. Resolved -Continue lactulose. Will continue to trend level. 4. Alcohol abuse. Cessation advised DVT prophylaxis. SCDs Gastrointestinal prophylaxis. Proton pump inhibitors. Disposition/plan: Stop abx. DC planning to SNF with Hospice follow-up. However, patient wants to proceed with Full code at this time. Please see palliative care medicine eval and SW eval. Case discussed with Dr. Finney Problems: Subjective 24 Hr Interval Summary Free Text/Dictation PATIENT LYING IN BED COMFORTABLY. AFEBRILE. DENIES TALKING ABOUT CODE STATUS . Exam/Review of Systems Vital Signs Vitals Vital Signs Date Time Temp Pulse Resp B/P Pulse Ox O2 Delivery O2 Flow Rate FiO2 10/19/16 07:39 98.9 103 18 99/60 91 10/19/16 07:18 2.0 10/18/16 22:49 Nasal Cannula Intake and Output 10/18/16 10/18/16 10/19/16 15:00 23:00 07:00 Intake Total 300 ml 450 ml Balance 300 ml 450 ml Exam General: Frail looking female, not in any acute distress . HEENT: Normocephalic, Atraumatic, No laceration or hematoma; Eyes: PEERL, Conjunctiva clear, Anicteric sclera Neck: Supple without any lymphadenopathy, nontender, no JVD, no carotid bruits, trachea midline, no thyromegaly Cardiac: S1, S2 auscultated, regular rhythm and rate, no mumurs or gallop Pulmonary: Normal respiratory effort. Chest clear to auscultation bilaterally, no adventitious breath sounds GI: Abdomen soft to inspection. no masses, no rebound tenderness or guarding. Bowel sounds active on all four quadrants Genitourinary: Deferred Extremities: No cyanosis, clubbing, or edema. Pulses [2+] bilaterally. Full ROM on all four extremities. No focal weakness appreciated. Neurologic: Today patient is alert oriented 4. Affect appropriate, intact sensation. Skin: Clean,dry, and intact. No ecchymosis, no rashes, or lesions Results Result Diagram: 10/15/1671310/15/1614 Medications Medications Current Medications Ondansetron HCl (Zofran Inj) 4 mg Q6H PRN IV NAUSEA AND/OR VOMITING Last administered on 10/16/16 13:59; Admin Dose 4 MG; Start 10/06/16 at 00:30 Morphine Sulfate (morphine) 2 mg Q4H PRN IV PAIN LEVEL 6-10 Last administered on 10/16/16 23:38; Admin Dose 2 MG; Start 10/06/16 at 05:30 Lactulose 20 gm 20 gm Q8 PO Last administered on 10/18/16 05:54; Admin Dose 20 GM; Start 10/08/16 at 14:30 Ceftriaxone Sodium (Rocephin) 50 ml @ 100 mls/hr Q24H IVPB Last administered on 10/18/16 17:53; Admin Dose 100 MLS/HR; Start 10/08/16 at 17:02 Multivit/Ca Carb/ B Cmplx/FA/Prenat (Cadence-Chris) 1 tab DAILY PO Last administered on 10/19/16 08:28; Admin Dose 1 TAB; Start 10/11/16 at 09:00 Folic Acid (Folic Acid) 1 mg DAILY PO Last administered on 10/19/16 08:30; Admin Dose 1 MG; Start 10/11/16 at 09:00 Spironolactone (Aldactone) 100 mg BID PO Last administered on 10/18/16 20:53; Admin Dose 100 MG; Start 10/12/16 at 21:00 Midodrine (Proamatine) 5 mg TID@,,17 NGT Last administered on 10/19/16 08: 32; Admin Dose 5 MG; Start 10/13/16 at 09:00 Pantoprazole (Protonix Tab) 40 mg DAILY@06 PO Last administered on 10/19/16 08 :27; Admin Dose 40 MG; Start 10/16/16 at 06:00 Lorazepam (Ativan) 1 mg Q6H PRN PO AGITATION/ANXIETY Last administered on 00:06; Admin Dose 1 MG; Start 10/16/16 at 13:30 FRIDA NORMAN NP Oct 19, 2016 08:46
[2016-10-19 13:08] VITALS: BP 105/68; PULSE 83
[2016-10-19 14:00] VITALS: BP 121/77; RESP 18
[2016-10-19] MEDS: ALBUTEROL/IPRATROPIUM (NEB) 3 ML AMP HHN PRN (14:00)
[2016-10-19 18:00] VITALS: BP 120/73; PULSE 92
[2016-10-19 20:31] VITALS: BP 96/59; RESP 18
[2016-10-20 02:00] VITALS: BP 100/59; RESP 18
[2016-10-20] MEDS: ALBUTEROL/IPRATROPIUM (NEB) 3 ML AMP HHN PRN (02:10)
[2016-10-20] MEDS: LORAZEPAM 1 MG TAB PO PRN (05:15)
[2016-10-20] MEDS: LACTULOSE 30ML CUP PO SCH ×3 (05:16→21:33)
[2016-10-20] MEDS: FUROSEMIDE 40 MG INJ IV SCH ×2 (05:17→18:23)
[2016-10-20 06:14] LABS: ABNORMAL IP MESSAGE 1; BASOPHILS % 0.5 % (0.0-2.0); EOSINOPHILS % 0.9 % (0.0-7.0); HEMATOCRIT 25.1 % (37.0-47.0); HEMOGLOBIN 8.8 g/dl (12.0-16.0); LYMPHOCYTES # 1.9 10^3/ul (0.8-2.9); LYMPHOCYTES % 43.9 % (15.0-51.0); MEAN CORPUSCULAR HEMOGLOBIN 32.8 pg (29.0-33.0); MEAN CORPUSCULAR HGB CONC 35.1 g/dl (32.0-37.0); MEAN CORPUSCULAR VOLUME 93.7 fl (82.0-101.0); MEAN PLATELET VOLUME 12.3 fl (7.4-10.4); MONOCYTE # 0.7 10^3/ul (0.3-0.9); NEUTROPHIL # 1.7 10^3/ul (1.6-7.5); NEUTROPHILS % 38.9 % (39.0-77.0); RED BLOOD COUNT 2.68 10^6/ul (4.20-5.40); RED CELL DISTRIBUTION WIDTH 14.9 % (11.5-14.5); WHITE BLOOD COUNT 4.4 10^3/ul (4.8-10.8)
[2016-10-20 06:24] LABS: MONOCYTES % 15.6 % (0.0-11.0); PLATELET COUNT 46 10^3/UL (140-415); POSITIVE DIFF @See below
[2016-10-20 07:07] LABS: CALCIUM 7.8 mg/dl (8.4-10.2); CREATININE 0.89 mg/dl (0.44-1.00)
[2016-10-20 07:46] VITALS: BP 111/65; RESP 18
[2016-10-20 07:50] LABS: POTASSIUM 2.7 mmol/L (3.5-5.1)
[2016-10-20] MEDS ORDERED: POTASSIUM CHLORIDE (SR) 20 MEQ TAB PO STA (07:59)
[2016-10-20] MEDS: MULTIVIT/CA CARB/B CMPLX/FA TAB PO SCH (09:00)
[2016-10-20] MEDS: FOLIC ACID 1 MG TAB PO SCH (09:00)
[2016-10-20] MEDS: SPIRONOLACTONE 50 MG TAB PO SCH ×2 (09:01→20:24)
[2016-10-20] MEDS: MIDODRINE 5 MG TAB NGT SCH ×3 (09:03→18:23)
[2016-10-20] MEDS ORDERED: POTASSIUM CHLORIDE 250 ML IVPB ONE (09:30)
--- NOTE | 2016-10-20 10:27 | PN ---
Date/Time of Note Date/Time of Note DATE: 10/20/16 TIME: 10:25 Assessment/Plan VTE Prophylaxis VTE Prophylaxis Intervention: ambulation, SCD's Lines/Catheters IV [facility] Type [facility] Saline Lock Urinary Cath still in place: No Assessment/Plan Chief Complaint/Hosp Course 1. 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 Symptoms improved significantly. --Status post successful paracentesis on 10/15/2016 with 6.9 L output. -Continue medical management with diuretics, Aldactone and sodium restricted diet. 2. Pancytopenia/coagulopathy/transaminitis with hyperbilirubinemia secondary to #1. Now stable. -Treatment as per above. No bleeding episodes. Will monitor. 3. Hepatic encephalopathy with hyperammonemia secondary to #1. Resolved -Continue lactulose. Will continue to trend level. 4. Alcohol abuse. Cessation advised 5. Hypokalemia. Repleted already. We will also obtain a mag level. DVT prophylaxis. SCDs Gastrointestinal prophylaxis. Proton pump inhibitors. Disposition/plan: Continue DNR status. DC planning to SNF with Hospice follow- up. Case management following for placement Case discussed with Dr. Rivers Problems: Subjective 24 Hr Interval Summary Free Text/Dictation No acute overnight episodes. Exam/Review of Systems Vital Signs Vitals Vital Signs Date Time Temp Pulse Resp B/P Pulse Ox O2 Delivery O2 Flow Rate FiO2 10/20/16 07:46 99.4 99 18 111/65 93 10/20/16 07:26 2.0 10/19/16 20:00 Nasal Cannula Intake and Output 10/19/16 10/19/16 10/20/16 15:00 23:00 07:00 Intake Total 800 ml 525 ml Balance 800 ml 525 ml Exam General: Frail looking female, not in any acute distress . HEENT: Normocephalic, Atraumatic, No laceration or hematoma; Eyes: PEERL, Conjunctiva clear, Anicteric sclera Neck: Supple without any lymphadenopathy, nontender, no JVD, no carotid bruits, trachea midline, no thyromegaly Cardiac: S1, S2 auscultated, regular rhythm and rate, no mumurs or gallop Pulmonary: Normal respiratory effort. Chest clear to auscultation bilaterally, no adventitious breath sounds GI: Abdomen soft to inspection. no masses, no rebound tenderness or guarding. Bowel sounds active on all four quadrants Genitourinary: Deferred Extremities: No cyanosis, clubbing, or edema. Pulses [2+] bilaterally. Full ROM on all four extremities. No focal weakness appreciated. Neurologic: Today patient is alert oriented 4. Affect appropriate, intact sensation. Skin: Clean,dry, and intact. No ecchymosis, no rashes, or lesions Results Result Diagram: 10/20/16 0538 10/20/16 0538 Results 24 hrs Laboratory Tests Test 10/20/16 05:38 White Blood Count 4.4 L Red Blood Count 2.68 L Hemoglobin 8.8 L Hematocrit 25.1 L Mean Corpuscular Volume 93.7 Mean Corpuscular Hemoglobin 32.8 Mean Corpuscular Hemoglobin Concent 35.1 Red Cell Distribution Width 14.9 H Platelet Count 46 #L Mean Platelet Volume 12.3 H Neutrophils % 38.9 L Lymphocytes % 43.9 Monocytes % 15.6 H Eosinophils % 0.9 Basophils % 0.5 Nucleated Red Blood Cells % 0.0 Neutrophils # 1.7 Lymphocytes # 1.9 Monocytes # 0.7 Eosinophils # 0.0 Basophils # 0.0 Nucleated Red Blood Cells # 0.0 Sodium Level 139 Potassium Level 2.7 *L Chloride Level 101 Carbon Dioxide Level 28 Anion Gap 13 Blood Urea Nitrogen 12 Creatinine 0.89 Glucose Level 102 Calcium Level 7.8 L Medications Medications Current Medications Ondansetron HCl (Zofran Inj) 4 mg Q6H PRN IV NAUSEA AND/OR VOMITING Last administered on 10/16/16 13:59; Admin Dose 4 MG; Start 10/06/16 at 00:30 Morphine Sulfate (morphine) 2 mg Q4H PRN IV PAIN LEVEL 6-10 Last administered on 10/16/16 23:38; Admin Dose 2 MG; Start 10/06/16 at 05:30 Lactulose (Enulose) 20 gm Q8 PO Last administered on 10/20/16 05:16; Admin Dose 20 GM; Start 10/08/16 at 14:30 Multivit/Ca Carb/ B Cmplx/FA/Prenat (Cadence-Chris) 1 tab DAILY PO Last administered on 10/20/16 09:00; Admin Dose 1 TAB; Start 10/11/16 at 09:00 Folic Acid (Folic Acid) 1 mg DAILY PO Last administered on 10/20/16 09:00; Admin Dose 1 MG; Start 10/11/16 at 09:00 Spironolactone (Aldactone) 100 mg BID PO Last administered on 10/20/16 09:01; Admin Dose 100 MG; Start 10/12/16 at 21:00 Midodrine (Proamatine) 5 mg TID@09,13,17 NGT Last administered on 10/20/16 09: 03; Admin Dose 5 MG; Start 10/13/16 at 09:00 Pantoprazole (Protonix Tab) 40 mg DAILY@06 PO Last administered on 10/19/16 08 :27; Admin Dose 40 MG; Start 10/16/16 at 06:00 Lorazepam 1 mg 1 mg Q6H PRN PO AGITATION/ANXIETY Last administered on 05:15; Admin Dose 1 MG; Start 10/16/16 at 13:30 Potassium Chloride (KCl 40 MEQ/250 ML NS) 250 ml @ 62.5 mls/hr ONCE ONCE IVPB ; Start 10/20/16 at 09:30; Stop 10/20/16 at 13:29 FRIDA NORMAN NP Oct 20, 2016 10:27
[2016-10-20] MEDS: morphine 2 MG INJ IV PRN (10:59)
--- NOTE | 2016-10-20 13:37 | PN ---
Date/Time of Note Date/Time of Note DATE: 10/20/16 TIME: 13:35 Assessment/Plan VTE Prophylaxis VTE Prophylaxis Intervention: ambulation Lines/Catheters IV [facility]ter Type (from [facility] Saline Lock Urinary Cath still in place: No Assessment/Plan Assessment/Plan Refractory ascites * End-stage alcoholic liver disease * Massive ascites/refractory * Coagulopathy * Thrombocytopenia * Mild portosystemic encephalopathy * Hypersplenism * Alcohol abuse * History of hypertension Plan: * Strict 2 g sodium and 1500 cc fluid restriction * continue present management * If no improvement the patient should be considered for TIPSS unfortunately no longer available at [facility] * case discussed with DR Kiran * Further orders will depend on clinical course Subjective 24 Hr Interval Summary Free Text/Dictation * Course reviewed with RN * Patient seen and examined * No untoward events overnight * awaiting placement Exam/Review of Systems Vital Signs Vitals Vital Signs Date Time Temp Pulse Resp B/P Pulse Ox O2 Delivery O2 Flow Rate FiO2 10/20/16 07:46 99.4 99 18 111/65 93 10/20/16 07:26 2.0 10/19/16 20:00 Nasal Cannula Intake and Output 10/19/16 10/19/16 10/20/16 15:00 23:00 07:00 Intake Total 800 ml 525 ml Balance 800 ml 525 ml Exam Constitutional: alert, oriented Head: atraumatic, normocephalic Neck: non-tender, supple Respiratory: clear to auscultation, normal air movement Cardiovascular: regular rate and rhythm Gastrointestinal: ascites, bowel sounds, distended, non-tender, soft Musculoskeletal: nl extremities to inspection, nl gait and stance Extremities: normal pulses Neurological: nl speech, nl strength Skin: nl turgor, No rash or lesions Lymph: nl lymph nodes Results Result Diagram: 10/20/16 0538 10/20/16 0538 Results 24 hrs Laboratory Tests Test 10/20/16 05:38 White Blood Count 4.4 L Red Blood Count 2.68 L Hemoglobin 8.8 L Hematocrit 25.1 L Mean Corpuscular Volume 93.7 Mean Corpuscular Hemoglobin 32.8 Mean Corpuscular Hemoglobin Concent 35.1 Red Cell Distribution Width 14.9 H Platelet Count 46 #L Mean Platelet Volume 12.3 H Neutrophils % 38.9 L Lymphocytes % 43.9 Monocytes % 15.6 H Eosinophils % 0.9 Basophils % 0.5 Nucleated Red Blood Cells % 0.0 Neutrophils # 1.7 Lymphocytes # 1.9 Monocytes # 0.7 Eosinophils # 0.0 Basophils # 0.0 Nucleated Red Blood Cells # 0.0 Sodium Level 139 Potassium Level 2.7 *L Chloride Level 101 Carbon Dioxide Level 28 Anion Gap 13 Blood Urea Nitrogen 12 Creatinine 0.89 Glucose Level 102 Calcium Level 7.8 L Magnesium Level 1.1 L Medications Medications Current Medications Ondansetron HCl (Zofran Inj) 4 mg Q6H PRN IV NAUSEA AND/OR VOMITING Last administered on 10/16/16 13:59; Admin Dose 4 MG; Start 10/06/16 at 00:30 Morphine Sulfate (morphine) 2 mg Q4H PRN IV PAIN LEVEL 6-10 Last administered on 10/20/16 10:59; Admin Dose 2 MG; Start 10/06/16 at 05:30 Lactulose (Enulose) 20 gm Q8 PO Last administered on 10/20/16 05:16; Admin Dose 20 GM; Start 10/08/16 at 14:30 Multivit/Ca Carb/ B Cmplx/FA/Prenat (Cadence-Chris) 1 tab DAILY PO Last administered on 10/20/16 09:00; Admin Dose 1 TAB; Start 10/11/16 at 09:00 Folic Acid (Folic Acid) 1 mg DAILY PO Last administered on 10/20/16 09:00; Admin Dose 1 MG; Start 10/11/16 at 09:00 Spironolactone (Aldactone) 100 mg BID PO Last administered on 10/20/16 09:01; Admin Dose 100 MG; Start 10/12/16 at 21:00 Midodrine (Proamatine) 5 mg TID@,,17 NGT Last administered on 10/20/16 09: 03; Admin Dose 5 MG; Start 10/13/16 at 09:00 Pantoprazole (Protonix Tab) 40 mg DAILY@06 PO Last administered on 10/19/16 08 :27; Admin Dose 40 MG; Start 10/16/16 at 06:00 Lorazepam 1 mg 1 mg Q6H PRN PO AGITATION/ANXIETY Last administered on 05:15; Admin Dose 1 MG; Start 10/16/16 at 13:30 Magnesium Sulfate (Magnesium Sulfate 4 Gm/100 ml) 100 ml @ 25 mls/hr ONCE ONCE IVPB ; Start 10/20/16 at 14:00; Stop 10/20/16 at 17:59 BEATA BRASWELL NP Oct 20, 2016 13:37
[2016-10-20 13:47] VITALS: BP 108/74; PULSE 89
[2016-10-20] MEDS ORDERED: MAGNESIUM SULFATE 4 GM/100 ML 100 ML IVPB ONE (14:00)
[2016-10-20 14:34] VITALS: BP 97/56; RESP 18
--- NOTE | 2016-10-20 16:38 | CONS ---
Date/Time of Note Date/Time of Note DATE: 10/20/16 TIME: 16:36 Assessment/Plan Assessment/Plan Additional Assessment/Plan Chart reviewed once again. Patient has a bleak short-term prognosis and for that reason I fully agree with patient being referred to hospice care. She has gone back and forth whether not she can go home or to a long-term unit but I am in full agreement she is unsafe to go home. Her CODE STATUS was changed at my last visit at that time she made it very clear she did not want to live in artificial life support. Consultation Date/Type/Reason Admit Date/Time Oct 05, 2016 at 23:21 Initial Consult Date 10/12/16 Type of Consultation: GI Exam/Review of Systems Vital Signs Vitals Vital Signs Date Time Temp Pulse Resp B/P Pulse Ox O2 Delivery O2 Flow Rate FiO2 10/20/16 14:34 98.1 84 18 97/56 98 10/20/16 07:26 2.0 10/19/16 20:00 Nasal Cannula Intake and Output 10/19/16 10/19/16 10/20/16 15:00 23:00 07:00 Intake Total 800 ml 525 ml Balance 800 ml 525 ml Results Result Diagram: 10/20/16 0538 10/20/16 0538 Results 24 hrs Laboratory Tests Test 10/20/16 05:38 White Blood Count 4.4 L Red Blood Count 2.68 L Hemoglobin 8.8 L Hematocrit 25.1 L Mean Corpuscular Volume 93.7 Mean Corpuscular Hemoglobin 32.8 Mean Corpuscular Hemoglobin Concent 35.1 Red Cell Distribution Width 14.9 H Platelet Count 46 #L Mean Platelet Volume 12.3 H Neutrophils % 38.9 L Lymphocytes % 43.9 Monocytes % 15.6 H Eosinophils % 0.9 Basophils % 0.5 Nucleated Red Blood Cells % 0.0 Neutrophils # 1.7 Lymphocytes # 1.9 Monocytes # 0.7 Eosinophils # 0.0 Basophils # 0.0 Nucleated Red Blood Cells # 0.0 Sodium Level 139 Potassium Level 2.7 *L Chloride Level 101 Carbon Dioxide Level 28 Anion Gap 13 Blood Urea Nitrogen 12 Creatinine 0.89 Glucose Level 102 Calcium Level 7.8 L Magnesium Level 1.1 L Medications Medications Current Medications Ondansetron HCl (Zofran Inj) 4 mg Q6H PRN IV NAUSEA AND/OR VOMITING Last administered on 10/16/16 13:59; Admin Dose 4 MG; Start 10/06/16 at 00:30 Morphine Sulfate (morphine) 2 mg Q4H PRN IV PAIN LEVEL 6-10 Last administered on 10/20/16 10:59; Admin Dose 2 MG; Start 10/06/16 at 05:30 Lactulose (Enulose) 20 gm Q8 PO Last administered on 10/20/16 13:45; Admin Dose 20 GM; Start 10/08/16 at 14:30 Multivit/Ca Carb/ B Cmplx/FA/Prenat (Cadence-Chris) 1 tab DAILY PO Last administered on 10/20/16 09:00; Admin Dose 1 TAB; Start 10/11/16 at 09:00 Folic Acid (Folic Acid) 1 mg DAILY PO Last administered on 10/20/16 09:00; Admin Dose 1 MG; Start 10/11/16 at 09:00 Spironolactone (Aldactone) 100 mg BID PO Last administered on 10/20/16 09:01; Admin Dose 100 MG; Start 10/12/16 at 21:00 Midodrine (Proamatine) 5 mg TID@,,17 NGT Last administered on 10/20/16 13: 46; Admin Dose 5 MG; Start 10/13/16 at 09:00 Pantoprazole (Protonix Tab) 40 mg DAILY@06 PO Last administered on 10/19/16 08 :27; Admin Dose 40 MG; Start 10/16/16 at 06:00 Lorazepam 1 mg 1 mg Q6H PRN PO AGITATION/ANXIETY Last administered on 05:15; Admin Dose 1 MG; Start 10/16/16 at 13:30 Magnesium Sulfate (Magnesium Sulfate 4 Gm/100 ml) 100 ml @ 25 mls/hr ONCE ONCE IVPB Last administered on 10/20/16 15:06; Admin Dose 25 MLS/HR; Start at 14:00; Stop 10/20/16 at 17:59 ENA SMITH Oct 20, 2016 16:38
[2016-10-20 20:07] VITALS: BP 111/75; RESP 18
[2016-10-21 02:35] VITALS: BP 96/60; RESP 18
[2016-10-21] MEDS: LACTULOSE 30ML CUP PO SCH (05:48)
[2016-10-21] MEDS: FUROSEMIDE 40 MG INJ IV SCH (05:49)
[2016-10-21] MEDS: PANTOPRAZOLE (EC) 40 MG TAB PO SCH (05:49)
[2016-10-21 06:37] LABS: CALCIUM 7.7 mg/dl (8.4-10.2); CREATININE 0.88 mg/dl (0.44-1.00); POTASSIUM 3.8 mmol/L (3.5-5.1)
[2016-10-21 07:16] VITALS: BP 106/66; RESP 18
--- NOTE | 2016-10-21 08:48 | PDOCDIS ---
Discharge Instructions CONDITION Patient Condition: Stable HOME CARE INSTRUCTIONS: Special Diet: 2gm NA FOLLOW UP/APPOINTMENTS Follow-up Plan 1.Follow up with primary care physician in 1 week If you don't have one please let someone know, we can give you resources that may help you pick one. You may also call your insurance company to assign one to you. Review your medication list with your nurse before leaving and if you need new prescriptions please let your nurse know. I may have made changes to your home medications or given you new prescriptions, please let your primary doctor know as well. Stay compliant with your medications and report any side effects to your PCP or pharmacist. Return to the ER if you have any concerns and cannot reach your doctors or call your insurance company, they usually have a nurse that can help you. OTHER ORDERS: Other Orders: Code status:DNR F/u with [facility] service assigned. Diet;2gm sodium, 1500 ml water restriction per day FRIDA NORMAN NP Oct 21, 2016 08:48
[2016-10-21] MEDS ORDERED: LACT20SO12 PO (08:52)
[2016-10-21] MEDS ORDERED: NEPH PO (08:52)
[2016-10-21] MEDS ORDERED: FURO40TA4 PO (08:52)
[2016-10-21] MEDS ORDERED: ALPR0.5T6 PO (08:52)
[2016-10-21] MEDS ORDERED: ONDA-43 PO (08:52)
[2016-10-21] MEDS ORDERED: MIDO5TAB19 NGT (08:52)
[2016-10-21] MEDS ORDERED: POTA20TA15 PO (08:52)
[2016-10-21] MEDS ORDERED: PANT40TA4 PO (08:52)
[2016-10-21] MEDS ORDERED: FUROSEMIDE 40 MG TAB PO SCH (09:00)
[2016-10-21] MEDS ORDERED: POTASSIUM CHLORIDE (SR) 20 MEQ TAB PO SCH (09:00)
[2016-10-21] MEDS ORDERED: LACTULOSE 30ML CUP PO SCH (09:00)
[2016-10-21] MEDS ORDERED: ALPRAZOLAM 0.5 MG TAB PO PRN (09:00)
[2016-10-21] MEDS: FOLIC ACID 1 MG TAB PO SCH (09:57)
[2016-10-21] MEDS: MULTIVIT/CA CARB/B CMPLX/FA TAB PO SCH (09:57)
[2016-10-21] MEDS: SPIRONOLACTONE 50 MG TAB PO SCH (09:57)
[2016-10-21] MEDS: MIDODRINE 5 MG TAB NGT SCH (10:02)
[2016-10-21] MEDS ORDERED: ALPRAZOLAM 0.25 MG TAB PO PRN (10:57)
--- NOTE | 2016-10-21 15:23 | DS ---
Date/Time of Note Date/Time of Note DATE: 10/21/16 TIME: 15:15 Discharge Summary Admission/Discharge Info Admit Date/Time Oct 05, 2016 at 23:21 Discharge Date/Time Oct 21, 2016 at 11:45 Discharge Diagnosis 1. 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 --Status post successful paracentesis on 10/15/2016 with 6.9 L output. 2. Pancytopenia/coagulopathy/transaminitis with hyperbilirubinemia secondary to #1. 3. Hepatic encephalopathy with hyperammonemia secondary to #1. Resolved 4. Alcohol abuse. Patient Condition: Stable Consults ,GI . Palliative care Procedures 10/15/2016. Approximately 6.9 liters of serous fluid was aspirated Hospital Course This is a 61-year-old female with a past medical history of alcohol abuse, hypertension, alcoholic cirrhosis, ascites, paracentesis, hepatitis C, thrombocytopenia, who was transferred from outside facility for worsening abdominal distention. Patient was transferred due to insurance purposes. She was also homeless and used to live with friends. Patient drinks alcohol actively. She denied any chest pain, shortness of breath, loss of consciousness, numbness, or other constitutional symptoms. She denied she did not have any bleeding episodes. Patient was admitted for further evaluation. Patient was continued on 2 g sodium diet. She was also started on Lasix diuresis. Persistent thrombocytopenia, despite multiple platelet transfusion preclude her from getting paracentesis treatment. She was also noted to have hepatic encephalopathy with hyperammonia and was treated on lactulose. Encephalopathy was resolved and she was back to her baseline neuro status. Patient was also noted to have pancytopenia. However she did not require any PRBC transfusion and her H&H remained at baseline. Patient was evaluated by GI specialist. She was continued on Lasix and Aldactone. Patient was also treated with Midodrin to prevent hypotension. Her abdominal distention was getting worse and she finally had paracentesis done successfully along with platelet transfusion. A total of 6.9 L was removed. Patient was then continued on medical management including Lasix diuresis, Aldactone, 1500 mL fluid restriction with 2 g sodium diet. She was counseled on alcohol cessation. Patient was able to tolerate diet. There was no further abdominal distention and she did not require any further paracentesis. Patient was evaluated by social work associate [facility]. During the course of hospitalization, patient stated that she did not have any place to live. Patient was evaluated by physical therapy service. She was able to ambulate with assistive devices and was a candidate for further retirement physical therapy for regaining function well. During the course of hospitalization, we discussed with patient regarding possible TIPS procedure in the future with recurrent ascites due to her end- stage liver disease. She was also made aware that her persistent thrombocytopenia precludes her from getting frequent paracentesis . However, patient did not want to do any further aggressive management for her condition or go through any further procedures. She was also interested in hospice service. Patient was also seen by palliative care medicine.CODE STATUS was changed to DNR as per patient wish. At this time, her labs and vital signs remained stable. There is no further abdominal distention. Patient neuro status remained at the baseline. She is medically stable for discharge. Disposition: Patient will be discharged to retirement facility with hospice follow-up. Patient verbalized discharge instructions. Condition at time of discharge is stable. Approximately 60 minutes was spent in coordinating the discharge on this patient. Case discussed with Dr. Rivers. Home Meds Active Scripts Ondansetron Hcl* (Zofran*) 4 Mg Tab, 4 MG PO Q4H Y for NAUSEA AND OR VOMITING, # 30 TAB Prov:NORMANFRIDA V. [employer]PER[employer] 10/21/16 Multivit/Ca Carb/B Cmplx/Fa* (Cadence-Chris*) 1 Tab Tab, 1 TAB PO DAILY, #30 TAB Prov:NORMAN,FRIDA V. [employer] 10/21/16 Pantoprazole* (Pantoprazole*) 40 Mg Tablet., 40 MG PO DAILY@06, #30 Prov:NORMAN,FRIDA V. [employer] 10/21/16 Potassium Chloride* (K-Dur*) 20 Meq Tab.prt.sr, 20 MEQ PO DAILY, #30 Prov:NORMAN,FRIDA V. [employer] 10/21/16 Lactulose* (Cephulac*) 20 Gm/30 Ml Soln, 20 GM PO DAILY, #30 Prov:NORMAN,FRIDA V. [employer] 10/21/16 Furosemide* (Furosemide*) 40 Mg Tablet, 40 MG PO DAILY, #30 TAB Prov:NORMANMARGIEA V. [employer] 10/21/16 Alprazolam* (Alprazolam*) 0.5 Mg Tablet, 0.5 MG PO Q12H Y for ANXIETY, #30 TAB Prov:EMERSONFRIDA V. [employer] SUPERVISOR 10/21/16 Midodrine* (Midodrine*) 5 Mg Tablet, 5 MG NGT TID@09,,17, #30 TAB Prov:NORMANNAEDGEFRIDA V. [employer] SUPERVISOR 10/21/16 Hydrocodone/Acetaminophen ([place] 5-325 Tablet) 1 Each Tablet, 1 EACH PO Q6 for PAIN, #30 TAB Prov:EMERSONFRIDA V. [employer] SUPER[employer]OR 02/19/16 Folic Acid* (Folic Acid*) 1 Mg Tablet, 1 MG PO DAILY, #30 TAB Prov:FRIDA NORMAN [employer] 02/19/16 Multivitamins* (Theragran*) 1 Tab Tab, 1 TAB PO DAILY, #30 TAB Prov:FRIDA NORMAN [employer] 02/19/16 Thiamine* (Thiamine*) 100 Mg Tablet, 100 MG PO DAILY, #30 TAB Prov:EMERSONFRIDA V. [employer] SUPER[employer]OR 02/19/16 Reported Medications Trazodone Hcl* (Trazodone Hcl*) 100 Mg Tablet, 100 MG PO QHS, #30 TAB 11/29/15 Citalopram Hydrobromide* (Citalopram Hydrobromide*) 20 Mg Tablet, 20 MG PO DAILY , #30 TAB 11/29/15 Metformin Hcl* (Metformin Hcl*) 500 Mg Tablet, 500 MG PO WITH BREAKFAST, #30 TAB 11/29/15 Discontinued Reported Medications Benazepril Hcl* (Benazepril Hcl*) 40 Mg Tablet, 40 MG PO DAILY, #30 TAB 11/29/15 Discontinued Scripts Ibuprofen* (Ibuprofen*) 200 Mg Capsule, 200 MG PO Q6, #30 CAP Prov:EMERSONFRIDA V. [employer] SUPER[employer]OR 02/19/16 Follow-up Plan HOME CARE INSTRUCTIONS: Special Diet: 2gm NA FOLLOW UP/APPOINTMENTS Follow-up Plan 1.Follow up with primary care physician in 1 week If you don't have one please let someone know, we can give you resources that may help you pick one. You may also call your insurance company to assign one to you. Review your medication list with your nurse before leaving and if you need new prescriptions please let your nurse know. I may have made changes to your home medications or given you new prescriptions, please let your primary doctor know as well. Stay compliant with your medications and report any side effects to your PCP or pharmacist. Return to the ER if you have any concerns and cannot reach your doctors or call your insurance company, they usually have a nurse that can help you. OTHER ORDERS: Other Orders: Code status:DNR F/u with [facility] service assigned. Diet;2gm sodium, 1500 ml water restriction per day Primary Care Provider Mitch Carver Pending Labs Laboratory Tests Test 10/21/16 05:20 Sodium Level 135mmol/L (135-144) Potassium Level 3.8mmol/L (3.5-5.1) Chloride Level 101mmol/L (97-110) Carbon Dioxide Level 27mmol/L (21-31) Anion Gap 11 (8-16) Blood Urea Nitrogen 10mg/dl (7-20) Creatinine 0.88mg/dl (0.44-1.00) Glucose Level 104mg/dl (70-220) Calcium Level 7.7mg/dl (8.4-10.2) Magnesium Level 1.9mg/dl (1.7-2.5) FRIDA NORMAN NP Oct 21, 2016 15:23
[2016-10-22] MEDS ORDERED: FUROSEMIDE 40 MG INJ IV SCH (09:00)
== END 2016-10-21 11:45 | disposition hospice, inpatient (51) | DRG 433 ==
LOC: MS4 23:21 → MS2 10-15 22:40
PROVIDERS: ADMIT Family Medicine; ATTEND Family Medicine
PROC: 30233R1 Transfusion of Nonautologous Platelets into Peripheral Vein, Percutaneous Approach (ICD-10-PCS; 2016-10-07)
PROC: 0W9G3ZZ Drainage of Peritoneal Cavity, Percutaneous Approach (ICD-10-PCS; principal; 2016-10-15)
DX: K70.31 Alcoholic cirrhosis of liver with ascites (principal); D61.818 Other pancytopenia; K70.40 Alcoholic hepatic failure without coma; D68.4 Acquired coagulation factor deficiency; E72.20 Disorder of urea cycle metabolism, unspecified; D73.1 Hypersplenism; I10 Essential (primary) hypertension; E11.9 Type 2 diabetes mellitus without complications; N39.0 Urinary tract infection, site not specified; F10.10 Alcohol abuse, uncomplicated; R74.0 Nonspecific elevation of levels of transaminase and lactic acid dehydrogenase [LDH]; Z66 Do not resuscitate; E87.6 Hypokalemia; F32.9 Major depressive disorder, single episode, unspecified; E83.42 Hypomagnesemia; B19.20 Unspecified viral hepatitis C without hepatic coma; Z59.0 Homelessness
CPT/HCPCS: 36430; 80048; 80053; 80061; 80076; 80306; 80307; 81001; 82140; 82728; 83036; 83540; 83735; 84100; 84133; 84300; 84439; 84443; 84466; 85025; 85610; 85730; 86850; 86900; 86901; 86945; 94640; 94664; 97110; 97116; 97162; 97530; J1940; C9113; J0696; J2060; J2270; J2405; J3411; J3420; J3475; J3480; J7030; J7040; P9035